=== PATIENT | male | born 1975 | race Caucasian/White ===

== ENCOUNTER 2018-02-11 17:10 | Inpatient (IN) | payer OTHER ==
[2018-02-11] MEDS ORDERED: ASPIRIN 81 MG CHEWABLE TABLETS PO ONE (17:17)
--- NOTE | 2018-02-11 17:18 | PDOC ---
Rapid Medical Evaluation Chief Complaint: Chest Pain Time Seen by Provider: 02/11/18 17:16 Medical Evaluation: 02/11/18 17:16 c/o epigastric/ left sided chest pain for 1 hour prior to arrival. patient reports feeling sweating and slight nausea. PE: patient alert ox3. A; chest pain Labs EKG chest xray Discharge Disposition - Diagnosis Chest pain Qualifiers: Chest pain type: unspecified Qualified Code(s): R07.9 - Chest pain, unspecified - Referrals - Patient Instructions - Post Discharge Activity
[2018-02-11] MEDS ORDERED: ASPIRIN 81 MG CHEWABLE TABLETS ONE (17:35)
[2018-02-11 17:56] LABS: BASO % 1.1 % (0-2.0); EOS % 1.1 % (0-4.5); HEMATOCRIT 42.1 % (35.4-49); HEMOGLOBIN 13.9 GM/dL (11.7-16.9); LYMPH % 29.8 % (8-40); MCH 28.6 pg (25.7-33.7); MCHC 32.9 g/dl (32.0-35.9); MEAN CELL VOLUME 86.8 fl (80-96); MEAN PLT VOLUME 9.2 fl (7.5-11.1); MONO % 6.3 % (3.8-10.2); NEUT % 61.7 % (42.8-82.8); PLATELET COUNT 197 K/MM3 (134-434); RBC 4.85 M/mm3 (4.00-5.60); RDW 13.1 % (11.9-15.9); WHITE BLOOD COUNT 10.1 K/mm3 (4.0-10.0)
[2018-02-11 18:06] LABS: ALBUMIN 3.8 g/dl (3.4-5.0); ALK PHOS 125 U/L (45-117); ANION GAP 10 MMOL/L (8-16); BILIRUBIN,TOTAL 0.8 mg/dL (0.2-1); BLOOD UREA NITROGEN 14 mg/dL (7-18); CALCIUM 8.9 mg/dL (8.5-10.1); CHLORIDE 106 mmol/L (98-107); CO2 25 mmol/L (21-32); CREATININE 0.8 mg/dL (0.55-1.3); GLUCOSE,RANDOM 167 mg/dL (74-106); POTASSIUM 3.9 mmol/L (3.5-5.1); SGOT/AST 163 U/L (15-37); SGPT/ALT 118 U/L (13-61); SODIUM 141 mmol/L (136-145); TOT PROT 7.6 g/dl (6.4-8.2)
[2018-02-11 18:39] LABS: INR 1.18 (0.83-1.09)
--- NOTE | 2018-02-11 18:46 | PDOC ---
Attending Attestation - HPI HPI: This patient is a 42 year old male with no significant PMHx, who presents with epigastric for 1 hour prior to arrival. Patient states that around 4 pm he felt a dull epigastric pain, felt lightheaded, began to sweat and have mild SOB. Patient reports associated nausea and diaphoresis. He denies any recent fevers, chills, or infections. Denies any back pain, diarrhea, constipation, or urinary complaints. <Carmina Gamboa - Last Filed: 02/11/18 19:58> - Physicial Exam PE: 02/13/18 10:19 Agree with resident exam. Patient is in no acute distress, not diaphoretic on my exam. Abdomen is soft, non distended, with very mild epigastric tenderness to deep palpation. - Medical Decision Making 02/13/18 10:29 Pt presents to the ED complaining of epigastric pain. Differential includes gastritis, pancreatitis, biliary disease and less likely ACS. initial EKG shows incomplete RBB but no evidence of ischemia. Will check labs including LFT , lipase and troponin. Will treat with pepcid. If troponin is negative, HEART score will be 1. Will consider discharge if second troponin is negative. <Thao Jones - Last Filed: 02/13/18 10:33>
[2018-02-11] MEDS ORDERED: ACETAMINOPHEN 1000 MG/100 ML VIAL (NON FORMULARY) IVPB ONE (18:49)
[2018-02-11] MEDS ORDERED: SODIUM CHLORIDE 0.9% 500 ML INFUS.BAG IV ONE (18:49)
[2018-02-11] MEDS ORDERED: FAMOTIDINE 20 MG/50 ML IVPB 20 MG/50 ML MG IVPB ONE ×2 (18:50→18:52)
[2018-02-11] MEDS ORDERED: KETOROLAC TROMETHAMINE 30 MG/1 ML VIAL IVPUSH ONE (19:11)
[2018-02-11] MEDS ORDERED: KETOROLAC TROMETHAMINE 30 MG/1 ML VIAL ONE (19:33)
--- NOTE | 2018-02-11 19:39 | PDOC ---
History of Present Illness - General Chief Complaint: Chest Pain Stated Complaint: CHEST PAIN Time Seen by Provider: 02/11/18 17:16 - History of Present Illness Initial Comments: 42 yo M w no sig pmh presents to the ER with epigastric pain which came about at 4 pm today while he was watching television. At 3 pm he states that he was healthy and had no complaints. Then out of nowhere at 4 pm he began having this boring, dull pain the epigastric region, felt lightheaded, started sweating, and had mild shortness of breath. By the time he got to the hospital his SOB and diaphoresis had resolved but his epigastric discomfort was still persisting. EkG done in triage showed a partial RBBB and was bradycardic to 50. By the time I went to examine the patient at bedside his heart rate had normalized to 68. He denies any recent fevers, chills, or infections. Denies any chest pain, back pain, diarrhea, constipation, or urinary complaints. PCP: Social Hx: Denies cigarette, alcohol, or illicit drug usage. Allergies: NKA, NKDA Past History - Past Medical History Allergies/Adverse Reactions: Allergies Allergy/AdvReac Type Severity Reaction Status Date / Time No Known Allergies Allergy Verified 02/11/18 17:18 Home Medications: Ambulatory Orders NK [No Known Home Medication] 02/11/18 COPD: No - Suicide/Smoking/Psychosocial Hx Smoking History: Never smoked Review of Systems - Review of Systems Comments:: CONSTITUTIONAL: Present: diaphoresis Absent: fever, chills, generalized weakness, malaise, loss of appetite HEENT: Absent: rhinorrhea, nasal congestion, throat pain, throat swelling, difficulty swallowing, mouth swelling, ear pain, eye pain, visual Changes CARDIOVASCULAR: Present: lightheadedness Absent: chest pain, syncope, palpitations, irregular heart rate, peripheral edema RESPIRATORY: Present: Shortness of breath Absent: cough, dyspnea with exertion, orthopnea, wheezing, stridor, hemoptysis GASTROINTESTINAL: Present: Abdominal pain Absent: abdominal distension, nausea, vomiting, diarrhea, constipation, melena, hematochezia GENITOURINARY: Absent: dysuria, frequency, urgency, hesitancy, hematuria, flank pain, genital pain MUSCULOSKELETAL: Absent: myalgia, arthralgia, joint swelling SKIN: Absent: rash, itching, pallor HEMATOLOGIC/IMMUNOLOGIC: Absent: easy bleeding, easy bruising, lymphadenopathy, frequent infections ENDOCRINE: Absent: unexplained weight gain, unexplained weight loss, heat intolerance, cold intolerance NEUROLOGIC: Absent: headache, focal weakness or paresthesias, dizziness, unsteady gait, seizure, mental status changes, bladder or bowel incontinence PSYCHIATRIC: Absent: anxiety, depression, suicidal or homicidal ideation, hallucinations. *Physical Exam - Vital Signs Last Vital Signs Temp Pulse Resp BP Pulse Ox 98.4 F 61 17 129/75 100 02/11/18 17:17 02/11/18 18:57 02/11/18 18:57 02/11/18 18:57 02/11/18 18:57 - Physical Exam Comments: GENERAL: Well developed, well nourished. Awake and alert. No acute distress. HEENT: Normocephalic, atraumatic. PERRLA, EOMI. No conjunctival pallor. Sclera are non- icteric. Moist mucous membranes. Oropharynx is clear. NECK: Supple. Full ROM. No JVD. No thyromegaly. No lymphadenopathy. CARDIOVASCULAR: Regular rate and rhythm. No murmurs, rubs, or gallops. Distal pulses are 2+ and symmetric. PULMONARY: No evidence of respiratory distress. Lungs clear to auscultation bilaterally. No wheezing, rales or rhonchi. ABDOMINAL: There is mild TTP in the epigastric region. Otherwise, abdomen is soft, non- tender, and non-distended. No rebound or guarding. No organomegaly. Normoactive bowel sounds. MUSCULOSKELETAL Normal range of motion at all joints. No bony deformities or tenderness. No CVA tenderness. EXTREMITIES: No cyanosis. No clubbing. No edema. No calf tenderness. SKIN: Warm and dry. Normal capillary refill. No rashes. No jaundice. NEUROLOGICAL: Alert, awake, appropriate. Cranial nerves 2-12 intact. No deficits to light touch in face, upper extremities and lower extremities. No motor deficits in the in face, upper extremities and lower extremities. Normal speech. Gait is normal without ataxia. PSYCHIATRIC: Cooperative. Good eye contact. Appropriate mood and affect. ED Treatment Course - LABORATORY CBC & Chemistry Diagram: 02/11/18 17:31 02/11/18 17:31 - ADDITIONAL ORDERS Additional order review: Laboratory Results 02/11/18 02/11/18 17:31 17:31 PT with INR 14.00 H INR 1.18 H Sodium 141 Potassium 3.9 Chloride 106 Carbon Dioxide 25 Anion Gap 10 BUN 14 Creatinine 0.8 Creat Clearance w eGFR > 60 Random Glucose 167 H Calcium 8.9 Magnesium 2.0 Total Bilirubin 0.8 AST 163 H ALT 118 H Alkaline Phosphatase 125 H Creatine Kinase 113 Troponin I < 0.02 Total Protein 7.6 Albumin 3.8 02/11/18 17:31 RBC 4.85 MCV 86.8 MCHC 32.9 RDW 13.1 MPV 9.2 Neutrophils % 61.7 Lymphocytes % 29.8 Monocytes % 6.3 Eosinophils % 1.1 Basophils % 1.1 - RADIOLOGY Radiology Studies Ordered: Category Date Time Status ABDOMEN US -LIMITED [US] Stat Ultrasound 02/11/18 18:48 Ordered - Medications Given in the ED: ED Medications Discontinued Medications Generic Name Dose Route Start Last Admin Trade Name Freq PRN Reason Stop Dose Admin Acetaminophen 1,000 mg 02/11/18 18:49 02/11/18 19:32 Ofirmev Injection - IVPB 02/11/18 18:50 Not Given ONCE ONE Aspirin 162 mg 02/11/18 17:17 02/11/18 17:41 Asa - PO 02/11/18 17:18 162 mg ONCE ONE Administration Famotidine/Sodium Chloride 20 mg in 50 mls @ 100 mls/hr 02/11/18 18:50 19:11 Pepcid 20 Mg Premixed Ivpb - IVPB 02/11/18 19:19 100 mls/hr ONCE ONE Administration Ketorolac Tromethamine 30 mg 02/11/18 19:11 02/11/18 19:35 Toradol Injection - IVPUSH 02/11/18 19:12 30 mg ONCE ONE Administration Sodium Chloride 1,000 ml 02/11/18 18:49 02/11/18 19:11 Normal Saline - IV 02/11/18 18:50 1,000 ml ONCE ONE Administration Medical Decision Making - Medical Decision Making 42 yo M w no sig pmh presents to the ER with epigastric pain, diaphoresis, bradycardia, partial RBBB, SOB. 1st trop negative, EKG not suggestive of ACS. DD includes but not limited to: ACS, vasovagal pain episode, pancreatitis, gallbladder disease, liver disease. Plan: Cbc, Cmp, lipase, ekg, trop x2, IVF-ns, RUQ us, toradol, re-assess. -1st trop noted to be negative. - 2nd trop negative as well. This is likely not cardiovascular pain. LFT's mildly elevated. US showed biliary sludge and a thickened wall. Patients father also had gallstones. We will admit for surgical eval, pain control, and for further evaluation of LFTs *DC/Admit/Observation/Transfer Diagnosis at time of Disposition: Biliary sludge determined by ultrasound, Abnormal LFTs (liver function tests) Chest pain Qualifiers: Chest pain type: unspecified Qualified Code(s): R07.9 - Chest pain, unspecified - Referrals - Patient Instructions - Post Discharge Activity
[2018-02-11] MEDS ORDERED: MAG HYDROX/AL HYDROX/SIMETH -MYLANTA- ORAL SUSPENSION PO ONE (20:11)
[2018-02-11] MEDS ORDERED: MAG HYDROX/AL HYDROX/SIMETH 30 ML UNIT-DOSE CUP ONE (20:14)
[2018-02-11] MEDS ORDERED: morphine SULFATE 4 MG/ML VIAL ONE (20:36)
[2018-02-11 20:47] LABS: LIPASE 266 U/L (73-393)
[2018-02-11] MEDS ORDERED: morphine CARPU-JECT 2 MG/1 ML DISP.SYRIN IVPUSH ONE (20:54)
--- NOTE | 2018-02-11 22:44 | PN ---
Teaching Attending Note Name of Resident: Singh Medina ATTENDING PHYSICIAN STATEMENT I saw and evaluated the patient. I reviewed the resident's note and discussed the case with the resident. I agree with the resident's findings and plan as documented. SUBJECTIVE: Patient is a 42 year old man with no significant PMH who presents to the ER with epigastric pain which started about 4 pm today while he was watching television. At 3 pm he states that he was healthy and had no complaints. Then out of nowhere at 4 pm he began having this boring, dull pain the epigastric region, felt lightheaded, started sweating, and had mild shortness of breath. By the time he got to the hospital his SOB and diaphoresis had resolved but his epigastric discomfort was still persisting. EkG done in triage showed a partial RBBB and was bradycardic to 50. Later his heart rate had normalized to 68. He denies any recent fevers, chills, diarrhea or urinary complaints. OBJECTIVE: Alert Vital Signs Period Temp Pulse Resp BP Sys/[place] Pulse Ox Last 24 Hr 98.4 F 50-63 17-20 125-129/50-75 99-100 HEENT: No Jaundice, eye redness or discharge, PERRLA, EOMI. Normocephalic, atraumatic. External ears are normal and hearing is grossly intact. No nasal discharge. Neck: Supple, nontender. No palpable adenopathy or thyromegaly. No JVD Chest: Good effort. Clear to auscultation and percussion. Heart: Regular. No S3, rub or murmur Abdomen: Not distended, soft, tender epigastrium and no HSM. No rebound or guarding. Normoactive bowel sounds. Ext: Peripheral pulses intact. No leg edema. Skin: Warm and dry. No petechiae, rash or ecchymosis. Neuro: Alert. Oriented x3. CN 2-12 grossly intact. Sensation grossly intact in all four extremities and DTR are symmetric. Home Medications Medication Instructions Recorded NK [No Known Home Medication] 02/11/18 Abnormal Lab Results 02/11/18 02/11/18 02/11/18 17:31 17:31 17:31 WBC 10.1 H PT with INR 14.00 H INR 1.18 H Random Glucose 167 H AST 163 H ALT 118 H Alkaline Phosphatase 125 H ASSESSMENT AND PLAN: 1. Epigastric pain - Sonogram findings suggestive of cholecystitis. Will treat with IV Levaquin, Flagyl and IV NS. Consult surgery, GI and get hepatitis serology. Get HbA1c. 2. DVT prophylaxis - Lovenox 40 mg SQ q 24 hours. 3. Advance directives - Full code
--- NOTE | 2018-02-12 00:32 | HP ---
CHIEF COMPLAINT: Abdominal pain PCP: HISTORY OF PRESENT ILLNESS: Patient is a 42 year old male with no significant past medical or surgical history presenting with sudden onset abdominal pain. Began approx. 4pm this afternoon as patient was sitting down. Pain is described as sharp, with pressure over the epigastrium. Pain is constant, and non radiating. Was associated with diaphoresis, lightheadedness. Upon my encounter, patient states the pain has fully resolved. He has received morphine, aspirin, mylanta, ofirmev , pepcid, and ketorolac in the ED. Denies fevers, chills, shortness of breath, chest pain, palpitations, nausea, vomiting, diarrhea, constipation. ER course was notable for: (1) Inspissated bile/ sludge within the gallbladder lumen on ultrasound (2) troponins engative 0.02 X2 (3) morphine, aspirin, mylanta, ofirmev, pepcid, ketorolac Recent Travel: PAST MEDICAL HISTORY: denies PAST SURGICAL HISTORY: denies Social History: Smoking: denies Alcohol: denies Drugs: denies Family History: Allergies No Known Allergies Allergy (Verified 02/11/18 17:18) HOME MEDICATIONS: Home Medications Medication Instructions Recorded NK [No Known Home Medication] 02/11/18 REVIEW OF SYSTEMS CONSTITUTIONAL: Absent: fever, chills, diaphoresis, generalized weakness, HEENT: Absent: rhinorrhea, nasal congestion, throat pain, throat swelling, difficulty swallowing, CARDIOVASCULAR: Absent: chest pain, syncope, palpitations, irregular heart rate, peripheral edema, lightheadedness (resolved) RESPIRATORY: Absent: cough, shortness of breath, dyspnea with exertion, orthopnea, wheezing, GASTROINTESTINAL: Admits: abdominal pain (resolved). Denies: abdominal distension, nausea, vomiting, diarrhea, constipation, melena, hematochezia GENITOURINARY: Absent: dysuria, frequency, urgency, hesitancy, hematuria, NEUROLOGIC: Absent: headache, focal weakness or paresthesias, dizziness, unsteady gait, bladder or bowel incontinence PHYSICAL EXAMINATION Vital Signs - 24 hr 02/11/18 02/11/18 02/11/18 17:17 18:57 20:49 Temperature 98.4 F Pulse Rate 50 L Pulse Rate [ 61 63 Apical] Respiratory 20 17 17 Rate Blood Pressure 125/50 L Blood Pressure 129/75 128/68 [Left Arm] O2 Sat by Pulse 100 100 99 Oximetry (%) GENERAL: Patient is awake, alert, and fully oriented, in no acute distress. Appears stated age. HEAD: Normal with no signs of trauma. EYES: Pupils equal, round and reactive to light, extraocular movements intact b/ l. Sclera anicteric, conjunctiva non-injected b/l. EARS, NOSE, THROAT: Oropharynx clear without exudates erythema, or lesion. Moist mucous membranes. NECK: Normal range of motion, supple without lymphadenopathy, JVD, or masses. LUNGS: Breath sounds equal, clear to auscultation bilaterally. No wheezes, no rhonchi. No accessory muscle use. HEART: Regular rate and rhythm, normal S1 and S2 without murmur, rub or gallop. ABDOMEN: Soft, nontender to light and deep palpation, not distended. Normoactive bowel sounds X4 quadrants, no guarding, no rebound tendernes. No hepatomegaly appreciated. Negative Bethea's sign. MUSCULOSKELETAL: Normal range of motion at all joints. Strength 5/5 b/l upper and lower extremities. UPPER EXTREMITIES: 2+ radial pulses b/l, warm, well-perfused. LOWER EXTREMITIES: 2+ dorsalis pedis pulses b/l, warm, well-perfused. No calf tenderness b/l. No lower extremity edema. NEUROLOGICAL: Cranial nerves II-XII intact. Normal speech. Normal gait. PSYCHIATRIC: Cooperative. Good eye contact. Appropriate mood and affect. SKIN: Warm, dry, normal turgor, no rashes or lesions noted, normal capillary refill. Laboratory Results - last 24 hr 02/11/18 02/11/18 02/11/18 17:31 17:31 17:31 WBC 10.1 H RBC 4.85 Hgb 13.9 Hct 42.1 MCV 86.8 MCH 28.6 MCHC 32.9 RDW 13.1 Plt Count 197 MPV 9.2 Absolute Neuts (auto) 6.2 Neutrophils % 61.7 Lymphocytes % 29.8 Monocytes % 6.3 Eosinophils % 1.1 Basophils % 1.1 Nucleated RBC % 0 PT with INR 14.00 H INR 1.18 H Sodium 141 Potassium 3.9 Chloride 106 Carbon Dioxide 25 Anion Gap 10 BUN 14 Creatinine 0.8 Creat Clearance w eGFR > 60 Random Glucose 167 H Calcium 8.9 Magnesium 2.0 Total Bilirubin 0.8 AST 163 H ALT 118 H Alkaline Phosphatase 125 H Creatine Kinase 113 Troponin I < 0.02 Total Protein 7.6 Albumin 3.8 Lipase 266 ASSESSMENT/PLAN: Patient is a 42 year old male with no significant past medical or surgical history presenting with sudden onset abdominal pain. Cholecystitis -Ultrasound of gallbladder shows inspissated bile/ sludge within the gallbladder lumen. No calculus noted. Mild distension of the gallbladder. -Levofloxacin 5000mg IV daily -Flagyl 500mg IV Q8H -Pain control with Morphine 2mg IV push Q6H PRN -F/U surgical consult (Dr. Negron) -F/U GI consult (Dr. Murray) -NPO -IV normal saline at 75mL/ hour Elevated blood glucose -Patient denies history of diabetes -F/U HbA1c -ISS -BGM FEN -IV normal saline at 75mL/ hour -Will follow CMP -NPO for now Prophylaxis -Lovenox 40mg subq daily Disposition -Admit to medical-surgical floor Visit type - Emergency Visit Emergency Visit: Yes ED Registration Date: 02/11/18 Care time: The patient presented to the Emergency Department on the above date and was hospitalized for further evaluation of their emergent condition. - New Patient This patient is new to me today: Yes Date on this admission: 02/12/18 - Critical Care Critical Care patient: No
[2018-02-12] MEDS: SODIUM CHLORIDE 1,000 ML IV SCH ×2 (01:39→17:22)
[2018-02-12 02:50] VITALS: BMI 27.8
[2018-02-12] MEDS: INSULIN SLIDING SCALE (NOVOLOG) 1 VIAL SQ SCH ×4 (06:50→21:41)
[2018-02-12 07:30] LABS: HEMATOCRIT 40.4 % (35.4-49); HEMOGLOBIN 13.6 GM/dL (11.7-16.9); MCH 29.1 pg (25.7-33.7); MCHC 33.6 g/dl (32.0-35.9); MEAN CELL VOLUME 86.5 fl (80-96); MEAN PLT VOLUME 9.3 fl (7.5-11.1); PLATELET COUNT 171 K/MM3 (134-434); RBC 4.67 M/mm3 (4.00-5.60); RDW 12.9 % (11.9-15.9); WHITE BLOOD COUNT 6.4 K/mm3 (4.0-10.0)
[2018-02-12 07:57] LABS: INR 1.28 (0.83-1.09); PROTHROMBIN TIME (PATIENT) 15.1 SEC (9.7-13.0)
[2018-02-12 08:00] LABS: ACTIVATED PTT 29.4 SECONDS (25.2-36.5)
[2018-02-12 08:50] LABS: ALBUMIN 3.4 g/dl (3.4-5.0); ALK PHOS 153 U/L (45-117); ANION GAP 7 MMOL/L (8-16); BILIRUBIN,TOTAL 3.6 mg/dL (0.2-1); BLOOD UREA NITROGEN 9 mg/dL (7-18); CALCIUM 8.4 mg/dL (8.5-10.1); CHLORIDE 108 mmol/L (98-107); CO2 26 mmol/L (21-32); CREATININE 0.6 mg/dL (0.55-1.3); GLUCOSE,RANDOM 94 mg/dL (74-106); MAGNESIUM 2.1 mg/dL (1.8-2.4); PHOSPHOROUS 2.7 mg/dL (2.5-4.9); POTASSIUM 3.6 mmol/L (3.5-5.1); SGOT/AST 306 U/L (15-37); SGPT/ALT 338 U/L (13-61); SODIUM 140 mmol/L (136-145); TOT PROT 6.8 g/dl (6.4-8.2)
[2018-02-12] MEDS ORDERED: ENOXAPARIN NA (PORCINE) 40 MG/0.4 ML DISP.SYRIN SQ SCH (10:00)
--- NOTE | 2018-02-12 10:25 | EKG ---
Test Reason : Blood Pressure : / mmHG Vent. Rate : 054 BPM Atrial Rate : 054 BPM P-R Int : 148 ms QRS Dur : 116 ms QT Int : 442 ms P-R-T Axes : 051 016 051 degrees QTc Int : 419 ms SINUS BRADYCARDIA WITH MARKED SINUS ARRHYTHMIA INCOMPLETE RIGHT BUNDLE BRANCH BLOCK NO PREVIOUS ECGS AVAILABLE Confirmed by FREYA VICKERS MD ([id number]) on 02/12/2018 10:24:54 AM Referred By: Confirmed By:FREYA VICKERS MD
--- NOTE | 2018-02-12 14:53 | PN ---
Progress Note (short form) - Note Progress Note: patient symptoms improved since the 1st episode, will await the MRI to evaluate the patient Cholecystitis -Ultrasound of gallbladder shows inspissated bile/ sludge within the gallbladder lumen. No calculus noted. Mild distension of the gallbladder. -Levofloxacin 500mg IV daily -metronidazole 500mg IV Q8H -Pain control with Morphine 2mg IV push Q6H PRN -F/U surgical consult (Dr. Negron) -F/U GI consult (Dr. Murray) -NPO -IV normal saline at 75mL/ hour Elevated blood glucose -Patient denies history of diabetes -F/U HbA1c -ISS -BGM FEN -IV normal saline at 75mL/ hour -Will follow CMP -NPO for now Prophylaxis -enoxaparin 40mg subq daily Disposition -Admit to medical-surgical floo
--- NOTE | 2018-02-12 16:24 | CONS ---
DATE OF CONSULTATION: DATE OF DICTATION: 02/12/2018 HISTORY OF PRESENT ILLNESS: The patient is a 42-year-old male with no significant past medical history who developed abdominal pain which began last night. He states the pain is in the epigastric area. It did not radiate. He also had associated chills, fever and sweating. He does not admit to any nausea, vomiting, change in his bowel habit, melena, hematochezia or previous similar episodes in the past. He does not take NSAIDs at home. He has never had an endoscopic evaluation. He states his pain has resolved at this time. PAST MEDICAL AND SURGICAL HISTORY: As listed in the HPI. ALLERGIES: No known drug allergies, SOCIAL HISTORY: He does not smoke, drink or use drugs. FAMILY HISTORY: Noncontributory. HOME MEDICATIONS: Denies taking any home medications. REVIEW OF SYSTEMS: Negative except for pertinent positives listed in the HPI. PHYSICAL EXAMINATION: Vital signs: Temperature 98, pulse 78, respiratory rate 12, blood pressure 126/ 74, pulse oximetry 100% on room air. General: In no acute distress. HEENT: Anicteric sclerae. Cardiovascular: S1, S2. Regular rate and rhythm. Lungs: Bilaterally clear to auscultation. Abdomen: Soft and nontender. Extremities: No edema. LABS: White blood cell count on admission was 10; currently 6.4. Hemoglobin 13.6, hematocrit 40. MCV 86. Platelet count 171. INR 1.2, PT 15, sodium 140, potassium 3.6, BUN 9, creatinine 0.6, calcium 8.4, total bilirubin 3.6. AST 306, ALT 338, alkaline phosphatase 153. Troponins are negative. Previous liver tests revealed an AST of 163, an ALT of 118 and alkaline phosphatase of 125. IMPRESSION: Epigastric abdominal pain. Ultrasound findings are consistent with bile and sludge in the gallbladder. These findings are most suspicious for a biliary etiology to his pain/ acute cholecystitis RECOMMENDATION: Patient to be n.p.o. IV fluids. He can have some ice chips. Would empirically treat him with Levaquin and Flagyl therapy for presumed acute cholecystitis. An MRCP has already been ordered and we will follow up the results. Trend LFT - repeat in the morning. Recommend surgery evaluation. Will follow this patient with you. DO EVERETT RITTERAnai/[id number] MTDD
[2018-02-12] MEDS ORDERED: INSULIN (NOVOLOG) ASPART 100 UNITS/ML 10ML VIAL ONE (21:10)
--- NOTE | 2018-02-12 21:44 | CONSULT ---
Consult Consult Specialty:: General Surgery Referred by:: Dr. Medina Reason for Consultation:: cholecystitis - History of Present Illness Chief Complaint: epigastric pain History of Present Illness: 42yo M with no sig PMH/PSH except environmental allergies he gets shots for, presented with epigastric pain for about a day, associated with some chills and sweating, but no N/V, no change in bowel habits, no radiation and no other symptoms. In the ER yesterday, he had wbc 10.1, mildly elevated LFTs with bili 0.8, was afebrile, and had US showing inspissated sludge in distended gallbladder with no ductal dilation or fluid. He was admitted to medicine, started on antibiotics and IVF for possible acute cholecystitis, and this morning, his bilirubin jumped to 3.6, with further elevation of AST/ALT as well. Lipase was normal. Surgery was asked to evaluate, and MRCP was done tonight. He is seen and examined in bed, with family at bedside. He reports feeling better, with no current pain, but he is hungry. His urine has been dark brown, almost reddish today, and his thinks he may look a tiny bit yellowish in his skin. Last BM was yesterday, normal. The pain was epigastric without radiation, but is gone now. His father is also present, who had his gallbladder removed laparoscopically several years ago. - History Source History Provided By: Patient Limitations to Obtaining History: No Limitations - Past Medical History ENT: Yes: Allergic Rhinitis - Past Surgical History Past Surgical History: Yes: None - Alcohol/Substance Use Hx Alcohol Use: Yes (social/occasional) History of Substance Use: reports: None - Smoking History Smoking history: Never smoked Have you smoked in the past 12 months: No - Social History Usual Living Arrangement: With Spouse ADL: Independent Occupation: manufacturing company Home Medications - Allergies Allergies/Adverse Reactions: Allergies Allergy/AdvReac Type Severity Reaction Status Date / Time No Known Allergies Allergy Verified 02/11/18 17:18 - Home Medications Home Medications: Ambulatory Orders NK [No Known Home Medication] 02/11/18 Family Disease History - Family Disease History Family Disease History: Other: Father (had gallbladder out) Review of Systems - Review of Systems Constitutional: reports: Chills, Diaphoresis. denies: Fever, Loss of Appetite Eyes: reports: Other (uses glasses for driving). denies: Recent Change in Vision HENT: denies: Difficult Swallowing, Throat Pain Neck: denies: Swollen Glands, Tenderness Cardiovascular: denies: Chest Pain, Palpitations Respiratory: denies: Cough, SOB Gastrointestinal: reports: Abdominal Pain (with hpi). denies: Constipation, Diarrhea, Nausea, Vomiting Genitourinary: denies: Burning, Dysuria Musculoskeletal: denies: Back Pain, Joint Pain, Muscle Pain Integumentary: denies: Change in Color, Rash Neurological: denies: Dizziness, Headache Psychiatric: denies: Anxiety, Depression Physical Exam Vital Signs: Vital Signs Temperature 98.6 F 02/12/18 18:00 Pulse Rate 73 02/12/18 18:00 Respiratory Rate 18 02/12/18 15:00 Blood Pressure 133/69 02/12/18 18:00 O2 Sat by Pulse Oximetry (%) 100 02/12/18 17:00 Constitutional: Yes: Well Nourished, No Distress, Calm Eyes: Yes: Conjunctiva Clear, EOM Intact. No: Sclera Icterus (faint, if any) HENT: Yes: Atraumatic, Normocephalic Neck: Yes: Supple, Trachea Midline Cardiovascular: Yes: Regular Rate and Rhythm, Murmur (blowing holosystolic murmur at left sternal border) Respiratory: Yes: Regular, CTA Bilaterally Gastrointestinal: Yes: Normal Bowel Sounds, Soft. No: Distention, Tenderness, Tenderness, Epigastrium ...Rectal Exam: Yes: Deferred Renal/: No: CVA Tenderness - Left, CVA Tenderness - Right Musculoskeletal: No: Joint Stiffness, Joint Swelling Extremities: No: Cool, Cyanosis Edema: No Peripheral Pulses WNL: Yes Integumentary: No: Jaundice (none appreciable), Rash Neurological: Yes: Alert, Oriented Psychiatric: Yes: Alert, Oriented Labs: CBC, BMP 02/12/18 06:15 02/12/18 06:15 CMP Sodium 140 mmol/L (136-145) 02/12/18 06:15 Potassium 3.6 mmol/L (3.5-5.1) 02/12/18 06:15 Chloride 108 mmol/L (98-107) H 02/12/18 06:15 Carbon Dioxide 26 mmol/L (21-32) 02/12/18 06:15 Anion Gap 7 MMOL/L (8-16) L 02/12/18 06:15 BUN 9 mg/dL (7-18) 02/12/18 06:15 Creatinine 0.6 mg/dL (0.55-1.3) 02/12/18 06:15 Creat Clearance w eGFR > 60 (>60) 02/12/18 06:15 POC Glucometer 98 UNITS (80-120) 02/12/18 16:25 Random Glucose 94 mg/dL (74-106) 02/12/18 06:15 Hemoglobin A1c % 5.6 % (4.2-6.3) 02/12/18 06:15 Calcium 8.4 mg/dL (8.5-10.1) L 02/12/18 06:15 Phosphorus 2.7 mg/dL (2.5-4.9) 02/12/18 06:15 Magnesium 2.1 mg/dL (1.8-2.4) 02/12/18 06:15 Total Bilirubin 3.6 mg/dL (0.2-1) H 02/12/18 06:15 AST 306 U/L (15-37) H 02/12/18 06:15 ALT 338 U/L (13-61) H 02/12/18 06:15 Alkaline Phosphatase 153 U/L (45-117) H 02/12/18 06:15 Creatine Kinase 113 IU/L (26-308) 02/11/18 17:31 Troponin I < 0.02 ng/ml (0.00-0.05) 02/11/18 22:00 Total Protein 6.8 g/dl (6.4-8.2) 02/12/18 06:15 Albumin 3.4 g/dl (3.4-5.0) 02/12/18 06:15 Lipase 266 U/L (73-393) 02/11/18 17:31 wbc down from 10.1 bili up from 0.8, AST/ALT up from 100s, alk phos still up lipase normal INR, PTT INR 1.28 (0.83-1.09) H 02/12/18 06:15 Imaging - Results Ultrasound: Report Reviewed, Image Reviewed (images personally reviewed - sludge in gallbladder with no clear stones, distended gb, no pericholecystic fluid, no ductal dilation) MRI: Report Reviewed, Image Reviewed (images reviewed with Dr. Peck by phone - no clear intraductal stones, + sludge in gb, mildly thickened wall of distended gallbladder, no surrounding fluid, no ductal dilation) Problem List - Problems (1) Calculus of gallbladder with acute cholecystitis without obstruction Assessment/Plan: sand/sludge in gallbladder with probable element of acute cholecystitis, clinically improved possibly passing sludge/small stones, given rise in LFTs this morning but no clear ductal obstruction on MRCP tonight currently without pain or tenderness NPO/IVF trend labs GI/DVT prophylaxis GI consult noted if LFTs back down in am, would allow clears tomorrow and NPO after midnight presuming pt willing to have lap ricky Wednesday if LFTs up in am, would have GI followup for possible ERCP despite MRI findings Discussed with patient and family risks, benefits and alternatives of laparoscopic possible open cholecystectomy, including but not limited to bleeding, infection, injury to adjacent structures, bile leak or ductal injury, intraabdominal abscess, incisional hernia, need for further procedures; alternatives include antibiotics, delayed or no surgery - risks of this include recurrence of biliary colic, cholecystitis, cholangitis, pancreatitis. Patient will consider surgery and discuss with family Pending above in am, will follow up for further discussion and recommendations Code(s): K80.00 - CALCULUS OF GALLBLADDER W ACUTE CHOLECYST W/O OBSTRUCTION (2) Sludge in gallbladder Code(s): K82.8 - OTHER SPECIFIED DISEASES OF GALLBLADDER (3) Hyperbilirubinemia Code(s): E80.6 - OTHER DISORDERS OF BILIRUBIN METABOLISM (4) Epigastric abdominal pain Code(s): R10.13 - EPIGASTRIC PAIN
[2018-02-12] MEDS ORDERED: SODIUM CHLORIDE 1,000 ML IV SCH (22:03)
[2018-02-13] MEDS: INSULIN SLIDING SCALE (NOVOLOG) 1 VIAL SQ SCH ×4 (06:15→22:53)
--- NOTE | 2018-02-13 07:32 | PN ---
Progress Note, Physician Chief Complaint: Pt states he is feeling better - denies any GI complaints - Current Medication List Current Medications: Active Medications Enoxaparin Sodium (Lovenox -) 40 mg SQ DAILY [facility] Metronidazole (Flagyl 500mg Premixed Ivpb -) 500 mg in 100 mls @ 100 mls/hr IVPB TID [facility] Last Admin: 02/13/18 06:11 Dose: 100 mls/hr Levofloxacin (Levaquin 500 Mg Premixed Ivpb -) 500 mg in 100 mls @ 100 mls/hr IVPB DAILY [facility]; Protocol Last Admin: 02/12/18 05:30 Dose: 100 mls/hr Sodium Chloride (Normal Saline -) 1,000 mls @ 125 mls/hr IV ASDIR [facility] Last Admin: 02/13/18 06:11 Dose: 125 mls/hr Insulin Aspart (Novolog Vial Sliding Scale -) 1 vial SQ ACHS [facility]; Protocol Last Admin: 02/13/18 06:15 Dose: Not Given - Objective Vital Signs: Vital Signs Temperature 98.2 F 02/13/18 05:46 Pulse Rate 85 02/13/18 05:46 Respiratory Rate 18 02/13/18 05:46 Blood Pressure 127/78 02/13/18 05:46 O2 Sat by Pulse Oximetry (%) 100 02/12/18 21:00 Constitutional: Yes: Well Nourished Eyes: Yes: Sclera Icterus HENT: Yes: WNL Neck: Yes: WNL Cardiovascular: Yes: WNL Respiratory: Yes: WNL Gastrointestinal: Yes: WNL, Normal Bowel Sounds, Soft Musculoskeletal: Yes: WNL Extremities: Yes: WNL Edema: No Labs: CBC, BMP 02/12/18 06:15 02/12/18 06:15 INR, PTT INR 1.28 (0.83-1.09) H 02/12/18 06:15 Problem List - Problems (1) Abnormal LFTs (liver function tests) Code(s): R94.5 - ABNORMAL RESULTS OF LIVER FUNCTION STUDIES (2) Calculus of gallbladder with acute cholecystitis without obstruction Code(s): K80.00 - CALCULUS OF GALLBLADDER W ACUTE CHOLECYST W/O OBSTRUCTION (3) Hyperbilirubinemia Code(s): E80.6 - OTHER DISORDERS OF BILIRUBIN METABOLISM Assessment/Plan - MRCP reviewed - acute cholecystitis - Bilirubin rising however AST and ALT are down trending , he may have passed a stone. Hepatitis serology are pending - clear liquid diet - trend LFT while hospitalized - c/w abx - Surgery is planning for cholecystectomy ; I will speak with Dr. Holland regarding timing of the ERCP. Tentatively , Patient should be NPO midnight. Plan of care was discussed with the patient at the bedside.
[2018-02-13 08:05] LABS: LIPASE 183 U/L (73-393)
[2018-02-13 09:35] LABS: BASO % 0.7 % (0-2.0); EOS % 1.5 % (0-4.5); HEMATOCRIT 40.3 % (35.4-49); HEMOGLOBIN 13.6 GM/dL (11.7-16.9); LYMPH % 13.9 % (8-40); MCH 29.6 pg (25.7-33.7); MCHC 33.7 g/dl (32.0-35.9); MEAN CELL VOLUME 87.9 fl (80-96); MEAN PLT VOLUME 10.2 fl (7.5-11.1); MONO % 8.3 % (3.8-10.2); NEUT % 75.6 % (42.8-82.8); PLATELET COUNT 167 K/MM3 (134-434); RBC 4.58 M/mm3 (4.00-5.60); RDW 13.4 % (11.9-15.9); WHITE BLOOD COUNT 5.7 K/mm3 (4.0-10.0)
--- NOTE | 2018-02-13 09:52 | PN ---
Progress Note (short form) - Note Progress Note: patient symptoms improved since the 1st episode, will await the MRI to evaluate the patient Cholecystitis -Ultrasound of gallbladder shows inspissated bile/ sludge within the gallbladder lumen. No calculus noted. Mild distension of the gallbladder. -Levofloxacin 500mg IV daily -metronidazole 500mg IV Q8H -Pain control with Morphine 2mg IV push Q6H PRN -NPO -IV normal saline at 75mL/ hour Elevated blood glucose -Patient denies history of diabetes -F/U HbA1c -ISS -BGM FEN -IV normal saline at 75mL/ hour -Will follow CMP -NPO for now Prophylaxis -enoxaparin 40mg subq daily Disposition -Admit to medical-surgical floo
[2018-02-13 10:24] LABS: ALBUMIN 3.2 g/dl (3.4-5.0); ANION GAP 3 MMOL/L (8-16); BLOOD UREA NITROGEN 10 mg/dL (7-18); CALCIUM 8.4 mg/dL (8.5-10.1); CHLORIDE 111 mmol/L (98-107); CO2 26 mmol/L (21-32); CREATININE 0.6 mg/dL (0.55-1.3); GLUCOSE,RANDOM 87 mg/dL (74-106); MAGNESIUM 1.9 mg/dL (1.8-2.4); POTASSIUM 3.5 mmol/L (3.5-5.1); SODIUM 140 mmol/L (136-145); TOT PROT 6.4 g/dl (6.4-8.2)
[2018-02-13 10:25] LABS: ALK PHOS 175 U/L (45-117); BILIRUBIN,TOTAL 8.3 mg/dL (0.2-1); SGOT/AST 106 U/L (15-37); SGPT/ALT 251 U/L (13-61)
[2018-02-13 10:46] LABS: INR 1.31 (0.83-1.09); PROTHROMBIN TIME (PATIENT) 15.5 SEC (9.7-13.0)
[2018-02-13 10:48] LABS: ACTIVATED PTT 32.3 SECONDS (25.2-36.5)
[2018-02-13 11:42] LABS: BILIRUBIN,DIRECT 5.7 mg/dL (0.0-0.2)
--- NOTE | 2018-02-13 15:50 | PN ---
Progress Note, Physician History of Present Illness: Pt with acute cholecystitis with sludge in gallbladder but no clear stones by US or other imaging. MRCP yesterday with no ductal dilation, no intraductal stones, sludge and thickened gallbladder wall. Bili up to 8.3 today (!) with direct of 5.7, AST/ALT down a bit, Alk phos up slightly. WBC normal, no fevers. Pt seen in room in bed with family at bedside - no pain, getting hungry. Having some ice chips. Had shower today. Ambulating, voiding, had BM. On antibiotics and IV fluids. - Current Medication List Current Medications: Active Medications Enoxaparin Sodium (Lovenox -) 40 mg SQ DAILY [facility] Last Admin: 02/13/18 10:27 Dose: 40 mg Metronidazole (Flagyl 500mg Premixed Ivpb -) 500 mg in 100 mls @ 100 mls/hr IVPB TID [facility] Last Admin: 02/13/18 14:19 Dose: 100 mls/hr Levofloxacin (Levaquin 500 Mg Premixed Ivpb -) 500 mg in 100 mls @ 100 mls/hr IVPB DAILY [facility]; Protocol Last Admin: 02/13/18 10:27 Dose: 100 mls/hr Potassium Chloride/Dextrose/Sod Cl (D5-1/2ns+20 Meq Kcl -) 20 meq in 1,000 mls @ 100 mls/hr IV ASDIR [facility] Insulin Aspart (Novolog Vial Sliding Scale -) 1 vial SQ ACHS [facility]; Protocol Last Admin: 02/13/18 12:00 Dose: Not Given - Objective Vital Signs: Vital Signs Temperature 97.5 F L 02/13/18 14:50 Pulse Rate 76 02/13/18 14:50 Respiratory Rate 18 02/13/18 14:50 Blood Pressure 128/77 02/13/18 14:50 O2 Sat by Pulse Oximetry (%) 100 02/13/18 09:00 Constitutional: Yes: Well Nourished, No Distress, Calm Eyes: Yes: Conjunctiva Clear, EOM Intact, Sclera Icterus (mild) HENT: Yes: Atraumatic, Normocephalic Cardiovascular: Yes: Regular Rate and Rhythm, Murmur (blowing holosystolic) Gastrointestinal: Yes: Soft. No: Distention, Tenderness, Tenderness, Epigastrium Extremities: No: Cool, Cyanosis Integumentary: Yes: Jaundice (faint? difficult to tell skin tone). No: Erythema , Rash Neurological: Yes: Alert, Oriented Labs: CBC, BMP 02/13/18 06:00 02/13/18 06:10 INR, PTT INR 1.31 (0.83-1.09) H 02/13/18 10:08 CMP Sodium 140 mmol/L (136-145) 02/13/18 06:10 Potassium 3.5 mmol/L (3.5-5.1) 02/13/18 06:10 Chloride 111 mmol/L (98-107) H 02/13/18 06:10 Carbon Dioxide 26 mmol/L (21-32) 02/13/18 06:10 Anion Gap 3 MMOL/L (8-16) L 02/13/18 06:10 BUN 10 mg/dL (7-18) 02/13/18 06:10 Creatinine 0.6 mg/dL (0.55-1.3) 02/13/18 06:10 Creat Clearance w eGFR > 60 (>60) 02/13/18 06:10 POC Glucometer 94 UNITS (80-120) 02/12/18 21:40 Random Glucose 87 mg/dL (74-106) 02/13/18 06:10 Hemoglobin A1c % 5.6 % (4.2-6.3) 02/12/18 06:15 Calcium 8.4 mg/dL (8.5-10.1) L 02/13/18 06:10 Phosphorus 2.0 mg/dL (2.5-4.9) L 02/13/18 06:10 Magnesium 1.9 mg/dL (1.8-2.4) 02/13/18 06:10 Ferritin 101.3 ng/ml (8-388) 02/13/18 06:10 Total Bilirubin 8.3 mg/dL (0.2-1) H 02/13/18 06:10 Direct Bilirubin 5.7 mg/dL (0.0-0.2) H 02/13/18 06:10 AST 106 U/L (15-37) H 02/13/18 06:10 ALT 251 U/L (13-61) H 02/13/18 06:10 Alkaline Phosphatase 175 U/L (45-117) H 02/13/18 06:10 Creatine Kinase 113 IU/L (26-308) 02/11/18 17:31 Troponin I < 0.02 ng/ml (0.00-0.05) 02/11/18 22:00 Total Protein 6.4 g/dl (6.4-8.2) 02/13/18 06:10 Albumin 3.2 g/dl (3.4-5.0) L 02/13/18 06:10 Lipase 183 U/L (73-393) 02/13/18 06:10 A1C normal hepatitis studies pending lipase normal and decreased LFTs as in HPI - bili greatly increased K little low INR, PTT INR 1.31 (0.83-1.09) H 02/13/18 10:08 INR up a little Problem List - Problems (1) Calculus of gallbladder with acute cholecystitis without obstruction Assessment/Plan: sand/sludge in gallbladder with acute cholecystitis by imaging but no clear stones clinically improved but with markedly elevated bilirubin and somewhat elevated LFTs no pain or tenderness continue NPO/IVF with ice chips for now, NPO after midnight trend labs GI/DVT prophylaxis GI following - likely for ERCP, hopefully tomorrow Discussed with Dr. Murray and Dr. Funez Primary team will also get echo in am to evaluate heart murmur Explained to patient and family that these steps are necessary before surgery should be undertaken He expressed understanding and agreement with plan Code(s): K80.00 - CALCULUS OF GALLBLADDER W ACUTE CHOLECYST W/O OBSTRUCTION (2) Sludge in gallbladder Code(s): K82.8 - OTHER SPECIFIED DISEASES OF GALLBLADDER (3) Hyperbilirubinemia Assessment/Plan: more increased today, mostly direct Code(s): E80.6 - OTHER DISORDERS OF BILIRUBIN METABOLISM (4) Epigastric abdominal pain Assessment/Plan: resolved Code(s): R10.13 - EPIGASTRIC PAIN (5) Holosystolic murmur Assessment/Plan: echo tomorrow Code(s): R01.1 - CARDIAC MURMUR, UNSPECIFIED
[2018-02-13] MEDS: D5-1/2NS+20 MEQ KCL - 20 MEQ/1,000 ML INFUS.BAG IV SCH (17:48)
[2018-02-14] MEDS: D5-1/2NS+20 MEQ KCL - 20 MEQ/1,000 ML INFUS.BAG IV SCH (03:35)
[2018-02-14] MEDS: INSULIN SLIDING SCALE (NOVOLOG) 1 VIAL SQ SCH ×4 (06:06→22:07)
[2018-02-14 06:39] LABS: BASO % 0.9 % (0-2.0); EOS % 2.1 % (0-4.5); HEMATOCRIT 39.6 % (35.4-49); HEMOGLOBIN 13.2 GM/dL (11.7-16.9); LYMPH % 34.9 % (8-40); MCH 28.9 pg (25.7-33.7); MCHC 33.2 g/dl (32.0-35.9); MEAN CELL VOLUME 86.9 fl (80-96); MEAN PLT VOLUME 9.3 fl (7.5-11.1); MONO % 9.3 % (3.8-10.2); NEUT % 52.8 % (42.8-82.8); PLATELET COUNT 161 K/MM3 (134-434); RBC 4.56 M/mm3 (4.00-5.60); RDW 13.1 % (11.9-15.9); WHITE BLOOD COUNT 4.3 K/mm3 (4.0-10.0)
[2018-02-14 08:19] LABS: ALBUMIN 3.2 g/dl (3.4-5.0); ALK PHOS 166 U/L (45-117); ANION GAP 7 MMOL/L (8-16); BILIRUBIN,TOTAL 1.8 mg/dL (0.2-1); BLOOD UREA NITROGEN 8 mg/dL (7-18); CALCIUM 8.4 mg/dL (8.5-10.1); CHLORIDE 105 mmol/L (98-107); CO2 28 mmol/L (21-32); CREATININE 0.6 mg/dL (0.55-1.3); GLUCOSE,RANDOM 100 mg/dL (74-106); MAGNESIUM 1.9 mg/dL (1.8-2.4); PHOSPHOROUS 2.8 mg/dL (2.5-4.9); POTASSIUM 3.1 mmol/L (3.5-5.1); SGOT/AST 51 U/L (15-37); SGPT/ALT 185 U/L (13-61); SODIUM 140 mmol/L (136-145); TOT PROT 6.7 g/dl (6.4-8.2)
[2018-02-14 08:50] LABS: INR 1.27 (0.83-1.09)
[2018-02-14] MEDS ORDERED: PHYTONADIONE 10 MG/1 ML AMP IVPB ONE (09:30)
--- NOTE | 2018-02-14 09:56 | ECHO ---
Name: PORSCHE DEAL Exam:Adult Echocardiogram Study Date: 02/14/2018 08:31 AM Age: 42 yrs [facility] Height: 68 in Weight: 183 lb BSA: 2.0 m2 MMode/2D Measurements & Calculations IVSd: 0.69 cm Ao root diam: 3.0 cm LVIDd: 5.6 cm LA dimension: 3.4 cm LVIDs: 3.5 cm LVPWd: 0.74 cm EDV(Teich): 152.5 ml LVOT diam: 2.3 cm ESV(Teich): 50.0 ml TAPSE: 2.5 cm RV S Ab: 15.2 cm/sec Doppler Measurements & Calculations MV E max ab: 87.8 cm/sec TR max ab: 218.5 cm/sec MV A max ab: 82.9 cm/sec TR max P.1 mmHg MV E/A: 1.1 Med Peak E' Ab: 10.1 cm/sec Med E/e': 8.7 Lat Peak E' Ab: 16.2 cm/sec Lat E/e': 5.4 Procedure A complete two-dimensional transthoracic echocardiogram was performed (2D, M-mode, Doppler and color flow Doppler). Left Ventricle The left ventricle is normal in size. Left ventricular systolic function is normal. Ejection Fraction = 60- 65%. No regional wall motion abnormalities noted. Right Ventricle The right ventricle is normal size. The right ventricular systolic function is normal. RV systolic TD I is 15 cm/s. Atria The left atrial size is normal. Right atrial size is normal. Mitral Valve The mitral valve is normal in structure and function. There is mild mitral regurgitation. Tricuspid Valve The tricuspid valve is normal in structure and function. There is mild tricuspid regurgitation. Right ventricular systolic pressure is normal. Aortic Valve The aortic valve is normal in structure and function. No aortic regurgitation is present. Pulmonic Valve The pulmonic valve is not well visualized. Great Vessels The aortic root is normal size. Pericardium/Pleura There is no pericardial effusion. Interpretation Summary The left ventricle is normal in size. Left ventricular systolic function is normal. No regional wall motion abnormalities noted. Ejection Fraction = 60-65%. The right ventricular systolic function is normal. The left atrial size is normal. Right atrial size is normal. There is mild mitral regurgitation. There is mild tricuspid regurgitation. There is no pericardial effusion. Previous study is not available for comparison Rafael Patel MD 02/14/2018 09:55 AM
--- NOTE | 2018-02-14 10:23 | PN ---
Progress Note (short form) - Note Progress Note: GI NOte ( ERCP coverage of Dr Morales): I interviewed and examined the patient who now recall having taken 10 antifungal pills about 20 days ago. His bilirubin has fallen from 8.0 to 1.8. The only scenario that I can use t explain such a dramatic change is passage of a stones through he CBD. I discussed the echocardiogram with Dr Rafael Patel who finds only mild MR and TR with a normal ejection fraction. At this point I have advised proceeding with ERCP to exclude residual stones. I have discussed ERCP in detail with Jon and have informed him of the potential for such complications as hemorrhage, perforation and ERCP induced pancreatittis causing pain, vomiting and multiorgan failure. After I answered his and his 's questions Jon signed an informed consent for ERCP.
[2018-02-14] MEDS ORDERED: INDOMETHACIN 50 MG RECTAL SUPPOSITORY PR ONE (11:00)
[2018-02-14] MEDS ORDERED: DESFLURANE GAS 240 ML BOTTLE IH ONE (11:17)
[2018-02-14] MEDS ORDERED: IOHEXOL 300 MG/ML INFUS..BTL IV ONE (11:45)
[2018-02-14] MEDS ORDERED: LACTATED RINGERS SOLUTION 1,000 ML/1,000 ML INFUS.BAG IV SCH ×2 (12:30→18:30)
[2018-02-14] MEDS: KCL 10 MEQ IVPB 10 MEQ/100 ML INFUS.BAG IVPB SCH ×2 (13:59→16:13)
--- NOTE | 2018-02-14 14:55 | PN ---
Progress Note, Physician History of Present Illness: Pt with acute cholecystitis with sludge in gallbladder but no clear stones by US or other imaging. MRCP with no ductal dilation, no intraductal stones, sludge and thickened gallbladder wall. Bili peaked at 8.1, down to 1.8 this morning. WBC normal, no fevers. Pt seen in room in bed with at bedside. On antibiotics and IV fluids. Had ERCP earlier by GI with extraction of sludge/ stone fragments from cbd with sphincterotomy and small ulceration in duodenal bulb noted. No pain currently. Awake, sitting on edge of bed. - Current Medication List Current Medications: Active Medications Metronidazole (Flagyl 500mg Premixed Ivpb -) 500 mg in 100 mls @ 100 mls/hr IVPB TID [facility] Last Admin: 02/14/18 13:59 Dose: 100 mls/hr Levofloxacin (Levaquin 500 Mg Premixed Ivpb -) 500 mg in 100 mls @ 100 mls/hr IVPB DAILY [facility]; Protocol Last Admin: 02/13/18 10:27 Dose: 100 mls/hr Lactated Ringer's (Lactated Ringers Solution) 1,000 ml in 1,000 mls @ 250 mls/ hr IV ASDIR [facility] Stop: 02/14/18 18:30 Last Admin: 02/14/18 13:53 Dose: 250 mls/hr Lactated Ringer's (Lactated Ringers Solution) 1,000 ml in 1,000 mls @ 200 mls/ hr IV ASDIR [facility] Stop: 02/15/18 00:30 Lactated Ringer's (Lactated Ringers Solution) 1,000 ml in 1,000 mls @ 175 mls/ hr IV ASDIR [facility] Stop: 02/15/18 06:30 Lactated Ringer's (Lactated Ringers Solution) 1,000 ml in 1,000 mls @ 150 mls/ hr IV ASDIR [facility] Insulin Aspart (Novolog Vial Sliding Scale -) 1 vial SQ ACHS [facility]; Protocol Last Admin: 02/14/18 14:11 Dose: Not Given - Objective Vital Signs: Vital Signs Temperature 98.6 F 02/14/18 12:41 Pulse Rate 75 02/14/18 14:03 Respiratory Rate 20 02/14/18 14:03 Blood Pressure 144/87 02/14/18 14:03 O2 Sat by Pulse Oximetry (%) 100 02/14/18 12:44 Constitutional: Yes: Well Nourished, No Distress, Calm Eyes: Yes: Conjunctiva Clear, EOM Intact. No: Sclera Icterus HENT: Yes: Atraumatic, Normocephalic Gastrointestinal: Yes: Soft. No: Distention, Tenderness, Tenderness, Epigastrium Extremities: No: Cool, Cyanosis Integumentary: No: Jaundice, Rash Neurological: Yes: Alert, Oriented Labs: CBC, BMP 02/14/18 06:00 02/14/18 06:00 INR, PTT INR 1.27 (0.83-1.09) H 02/14/18 06:00 K low - getting riders CMP Sodium 140 mmol/L (136-145) 02/14/18 06:00 Potassium 3.1 mmol/L (3.5-5.1) L 02/14/18 06:00 Chloride 105 mmol/L (98-107) 02/14/18 06:00 Carbon Dioxide 28 mmol/L (21-32) 02/14/18 06:00 Anion Gap 7 MMOL/L (8-16) L 02/14/18 06:00 BUN 8 mg/dL (7-18) 02/14/18 06:00 Creatinine 0.6 mg/dL (0.55-1.3) 02/14/18 06:00 Creat Clearance w eGFR > 60 (>60) 02/14/18 06:00 POC Glucometer 94 UNITS (80-120) 02/12/18 21:40 Random Glucose 100 mg/dL (74-106) 02/14/18 06:00 Hemoglobin A1c % 5.6 % (4.2-6.3) 02/12/18 06:15 Calcium 8.4 mg/dL (8.5-10.1) L 02/14/18 06:00 Phosphorus 2.8 mg/dL (2.5-4.9) 02/14/18 06:00 Magnesium 1.9 mg/dL (1.8-2.4) 02/14/18 06:00 Ferritin 101.3 ng/ml (8-388) 02/13/18 06:10 Total Bilirubin 1.8 mg/dL (0.2-1) H 02/14/18 06:00 Direct Bilirubin 5.7 mg/dL (0.0-0.2) H 02/13/18 06:10 AST 51 U/L (15-37) H 02/14/18 06:00 ALT 185 U/L (13-61) H 02/14/18 06:00 Alkaline Phosphatase 166 U/L (45-117) H 02/14/18 06:00 Creatine Kinase 113 IU/L (26-308) 02/11/18 17:31 Troponin I < 0.02 ng/ml (0.00-0.05) 02/11/18 22:00 Total Protein 6.7 g/dl (6.4-8.2) 02/14/18 06:00 Albumin 3.2 g/dl (3.4-5.0) L 02/14/18 06:00 Lipase 183 U/L (73-393) 02/13/18 06:10 LFTs down today Problem List - Problems (1) Calculus of gallbladder with acute cholecystitis without obstruction Assessment/Plan: sand/sludge in gallbladder with acute cholecystitis by imaging but no clear stones clinically improved but with bilirubin spike and elevated LFTs, now coming down no pain or tenderness clears for dinner, NPO after midnight trend labs in am to ensure no chemical pancreatitis GI/DVT prophylaxis GI following - s/p ERCP today continue antibiotics Discussed with patient risks, benefits and alternatives of laparoscopic possible open cholecystectomy, including but not limited to bleeding, infection , injury to adjacent structures, bile leak or ductal injury, intraabdominal abscess, incisional hernia, need for further procedures; alternatives include antibiotics, delayed or no surgery - risks of this include recurrence of biliary colic, cholecystitis, cholangitis, pancreatitis and attendant consequences. Patient desires to proceed with operation - will take to OR tomorrow for above, pending am labs and no evidence of pancreatitis post ERCP. Informed consent signed for same. Code(s): K80.00 - CALCULUS OF GALLBLADDER W ACUTE CHOLECYST W/O OBSTRUCTION (2) Sludge in gallbladder Code(s): K82.8 - OTHER SPECIFIED DISEASES OF GALLBLADDER (3) Hyperbilirubinemia Assessment/Plan: down today Code(s): E80.6 - OTHER DISORDERS OF BILIRUBIN METABOLISM (4) Holosystolic murmur Assessment/Plan: echo noted - normal ER, mild MR, mild TR Code(s): R01.1 - CARDIAC MURMUR, UNSPECIFIED
--- NOTE | 2018-02-14 16:59 | PN ---
Physical Exam: SUBJECTIVE: Patient seen and examined at bedside this morning. He is currently NPO and denies abdominal pain, nausea, vomiting. Last bowel movement was yesterday afternoon, normal without hematochezia, or melena. Urinating well without dysuria, hematuria. Denies headaches, fevers, chills, shortness of breath, chest pain, palpitations. OBJECTIVE: Vital Signs Period Temp Pulse Resp BP Sys/De La Cruz Pulse Ox Last 24 Hr 97.5 F-98.8 F 67-90 12-20 127-144/66-87 99-100 GENERAL: Patient is awake, alert, and fully oriented, in no acute distress. Appears stated age. HEAD: Normal with no signs of trauma. EYES: Pupils equal, round and reactive to light, extraocular movements intact b/ l. Sclera anicteric, conjunctiva non-injected b/l. EARS, NOSE, THROAT: Oropharynx clear without exudates erythema, or lesion. Moist mucous membranes. NECK: Normal range of motion, supple without lymphadenopathy, JVD, or masses. LUNGS: Breath sounds equal, clear to auscultation bilaterally. No wheezes, no rhonchi. No accessory muscle use. HEART: Regular rate and rhythm, normal S1 and S2 without murmur, rub or gallop. ABDOMEN: Soft, nontender to light and deep palpation, not distended. Normoactive bowel sounds X4 quadrants, no guarding, no rebound tendernes. No hepatomegaly appreciated. Negative Bethea's sign. MUSCULOSKELETAL: Normal range of motion at all joints. Strength 5/5 b/l upper and lower extremities. UPPER EXTREMITIES: 2+ radial pulses b/l, warm, well-perfused. LOWER EXTREMITIES: 2+ dorsalis pedis pulses b/l, warm, well-perfused. No calf tenderness b/l. No lower extremity edema. NEUROLOGICAL: Cranial nerves II-XII intact. Normal speech. Normal gait. PSYCHIATRIC: Cooperative. Good eye contact. Appropriate mood and affect. SKIN: Warm, dry, normal turgor, no rashes or lesions noted, normal capillary refill. Laboratory Results - last 24 hr 02/14/18 02/14/18 02/14/18 06:00 06:00 06:00 WBC 4.3 RBC 4.56 Hgb 13.2 Hct 39.6 MCV 86.9 MCH 28.9 MCHC 33.2 RDW 13.1 Plt Count 161 MPV 9.3 Absolute Neuts (auto) 2.3 Neutrophils % 52.8 D Lymphocytes % 34.9 D Monocytes % 9.3 Eosinophils % 2.1 Basophils % 0.9 Nucleated RBC % 0 PT with INR 15.00 H INR 1.27 H Sodium 140 Potassium 3.1 L Chloride 105 Carbon Dioxide 28 Anion Gap 7 L BUN 8 Creatinine 0.6 Creat Clearance w eGFR > 60 POC Glucometer Random Glucose 100 Calcium 8.4 L Phosphorus 2.8 Magnesium 1.9 Total Bilirubin 1.8 H AST 51 H ALT 185 H Alkaline Phosphatase 166 H Total Protein 6.7 Albumin 3.2 L Blood Type Antibody Screen 02/14/18 02/14/18 06:00 16:15 WBC RBC Hgb Hct MCV MCH MCHC RDW Plt Count MPV Absolute Neuts (auto) Neutrophils % Lymphocytes % Monocytes % Eosinophils % Basophils % Nucleated RBC % PT with INR INR Sodium Potassium Chloride Carbon Dioxide Anion Gap BUN Creatinine Creat Clearance w eGFR POC Glucometer 178 Random Glucose Calcium Phosphorus Magnesium Total Bilirubin AST ALT Alkaline Phosphatase Total Protein Albumin Blood Type O POSITIVE Antibody Screen Negative Active Medications Generic Name Dose Route Start Last Admin Trade Name Freq PRN Reason Stop Dose Admin Metronidazole 500 mg in 100 mls @ 100 mls/hr 02/12/18 05:00 02/14/18 13:59 Flagyl 500mg Premixed Ivpb - IVPB 100 mls/hr TID LLUVIA Administration Levofloxacin 500 mg in 100 mls @ 100 mls/hr 02/12/18 05:00 02/14/18 14:59 Levaquin 500 Mg Premixed Ivpb - IVPB 100 mls/hr DAILY LLUVIA Administration Protocol Lactated Ringer's 1,000 ml in 1,000 mls @ 250 mls/hr 02/14/18 12:30 02/14/18 13:53 Lactated Ringers Solution IV 02/14/18 18:30 250 mls/hr ASDIR LLUVIA Administration Lactated Ringer's 1,000 ml in 1,000 mls @ 200 mls/hr 02/14/18 18:30 Lactated Ringers Solution IV 02/15/18 00:30 ASDIR LLUVIA Lactated Ringer's 1,000 ml in 1,000 mls @ 175 mls/hr 02/15/18 00:30 Lactated Ringers Solution IV 02/15/18 06:30 ASDIR LLUVIA Lactated Ringer's 1,000 ml in 1,000 mls @ 150 mls/hr 02/15/18 06:30 Lactated Ringers Solution IV ASDIR LLUVIA Insulin Aspart 1 vial 02/12/18 07:00 02/14/18 16:16 Novolog Vial Sliding Scale - SQ Not Given ACHS LLUVIA Protocol IMAGING: Ultrasound of gallbladder shows inspissated bile/ sludge within the gallbladder lumen. No calculus noted. Mild distension of the gallbladder. ASSESSMENT/PLAN: Patient is a 42 year old male with no significant past medical or surgical history presenting with sudden onset abdominal pain. Cholecystitis -Levofloxacin 5000mg IV daily -Flagyl 500mg IV Q8H -Surgical consult (Dr. Negron) appreciated. Patient will undergo cholecystectomy -NPO after midnight for cholesystectmy tomorrow. -GI consult (Dr. Murray) appreciated. -F/U ERCP results Heart murmur -Cardiac echo shows normal LV size, and function. EF 65%. Mild MR, TR. Elevated blood glucose -HbA1c 5.6 -Patient will follow up with primary care physician as outpatient FEN -IV Lactated Ringers 200mL/ hour -Will follow CMP -NPO Prophylaxis -Lovenox 40mg subq daily, held after midnight for cholecystectomy tomorrow. Disposition -Continue care in medical-surgical floor. Laparoscopic cholecystectomy tomorrow. Visit type - Emergency Visit Emergency Visit: Yes ED Registration Date: 02/11/18 Care time: The patient presented to the Emergency Department on the above date and was hospitalized for further evaluation of their emergent condition. - New Patient This patient is new to me today: No - Critical Care Critical Care patient: No - Discharge Referral Referred to [facility] Med P.C.: No
--- NOTE | 2018-02-14 17:05 | PN ---
Teaching Attending Note Name of Resident: Toña Medellin ATTENDING PHYSICIAN STATEMENT I saw and evaluated the patient. I reviewed the resident's note and discussed the case with the resident. I agree with the resident's findings and plan as documented. SUBJECTIVE: Seen and examined; had ERCP today with extraction of stone fragments and sludge ; for his cholecystitis sgy will be taking him tomorrow. He is pain free; all of his questions have been answered. Hemodynamically stable and afebrile. Will trend labs to r/o chemical pancreatitis post ERCP. OBJECTIVE: All labs and vitals reviewed Gen: AAOx3, NAD, resting in bed GI: NT ND +BS all 4 quads CV: RRR s1/2 no mgr Lungs: CTAB with sym exp Ext: No edema, positive pulses HEENT: NC AT EOMI PERRLA Neuro: CN2-12 grossly intact, moves all 4 ext. ASSESSMENT AND PLAN: 1) Acute Cholecystitis -Likely 2/2 gallstones retrieved in ERCP; trend CMP, continue abx. NPO at [place] for lap ricky tomorrow. Discussed with patient 2) Heart Murmur-stable No change to managment of other conditions; as per resident note.
[2018-02-15] MEDS ORDERED: LACTATED RINGERS SOLUTION 1,000 ML/1,000 ML INFUS.BAG IV SCH ×3 (00:30→14:46)
[2018-02-15 06:06] LABS: SERUM IRON SATURATION 51 % (15-55); TOTAL IRON BINDING CAPACITY 251 ug/dL (250-450); UIBC 122 ug/dL (111-343)
[2018-02-15 06:06] LABS: HBSAG SCREEN Negative (Negative); HEP A AB, IGM Negative (Negative); HEP B CORE AB, TOT Negative (Negative)
[2018-02-15] MEDS: INSULIN SLIDING SCALE (NOVOLOG) 1 VIAL SQ SCH ×2 (06:36→11:27)
[2018-02-15 07:22] LABS: EOS % 1.4 % (0-4.5); LYMPH % 25.9 % (8-40); MCH 29.1 pg (25.7-33.7); MCHC 33.3 g/dl (32.0-35.9); MEAN CELL VOLUME 87.2 fl (80-96); MEAN PLT VOLUME 9.3 fl (7.5-11.1); MONO % 8.5 % (3.8-10.2); NEUT % 63.2 % (42.8-82.8); PLATELET COUNT 162 K/MM3 (134-434); RBC 4.47 M/mm3 (4.00-5.60); RDW 13.2 % (11.9-15.9); WHITE BLOOD COUNT 4.6 K/mm3 (4.0-10.0)
[2018-02-15 07:35] LABS: INR 1.29 (0.83-1.09); PROTHROMBIN TIME (PATIENT) 15.3 SEC (9.7-13.0)
[2018-02-15 08:04] LABS: ALBUMIN 3.1 g/dl (3.4-5.0); ALK PHOS 151 U/L (45-117); AMYLASE 127 U/L (25-115); ANION GAP 7 MMOL/L (8-16); BILIRUBIN,DIRECT 0.6 mg/dL (0.0-0.2); BILIRUBIN,TOTAL 1.3 mg/dL (0.2-1); BLOOD UREA NITROGEN 5 mg/dL (7-18); CALCIUM 8.6 mg/dL (8.5-10.1); CHLORIDE 108 mmol/L (98-107); CO2 30 mmol/L (21-32); CREATININE 0.5 mg/dL (0.55-1.3); GLUCOSE,RANDOM 96 mg/dL (74-106); LIPASE 540 U/L (73-393); MAGNESIUM 1.7 mg/dL (1.8-2.4); PHOSPHOROUS 2.9 mg/dL (2.5-4.9); POTASSIUM 3.4 mmol/L (3.5-5.1); SGOT/AST 41 U/L (15-37); SGPT/ALT 143 U/L (13-61); SODIUM 145 mmol/L (136-145); TOT PROT 6.4 g/dl (6.4-8.2)
[2018-02-15] MEDS: KCL 10 MEQ IVPB 10 MEQ/100 ML INFUS.BAG IVPB SCH ×3 (08:50→13:43)
[2018-02-15] MEDS ORDERED: BUPIVACAINE HCL/PF 0.5% (5MG/ML) 10 ML VIAL ONE (10:19)
[2018-02-15] MEDS ORDERED: BUPIVACAINE HCL/PF 0.25% (2.5MG/ML) 10 ML VIAL ONE (10:20)
[2018-02-15] MEDS ORDERED: PROPOFOL 20 ML ONE (11:16)
[2018-02-15] MEDS ORDERED: LIDOCAINE HCL/PF 2% SDV 5ML VIAL ONE (11:17)
[2018-02-15] MEDS ORDERED: DEXAMETHASONE SOD PHOSPHATE 4 MG/1 ML VIAL ONE (11:17)
[2018-02-15] MEDS ORDERED: SODIUM CHLORIDE 0.9% P/F 10 ML VIAL IJ ONE (11:17)
[2018-02-15] MEDS ORDERED: ceFAZolin SODIUM 1 GM VIAL ONE (11:17)
[2018-02-15] MEDS ORDERED: ONDANSETRON 4 MG/2 ML VIAL ONE (11:17)
[2018-02-15] MEDS ORDERED: MIDAZOLAM HCL 2 MG/2 ML SINGLE DOSE VIAL ONE (11:17)
[2018-02-15] MEDS ORDERED: ROCURONIUM BROMIDE 50 MG/5 ML VIAL ONE (11:17)
[2018-02-15] MEDS ORDERED: GLYCOPYRROLATE 0.2 MG/1 ML VIAL ONE (13:57)
[2018-02-15] MEDS ORDERED: KETOROLAC TROMETHAMINE 30 MG/1 ML VIAL ONE (13:57)
[2018-02-15] MEDS ORDERED: NEOSTIGMINE METHYLSULFATE 0.5 MG/ML - 10 ML MDV ONE (13:57)
[2018-02-15] MEDS ORDERED: ePHEDrine SULFATE 50 MG/1 ML AMPULE ONE (14:00)
[2018-02-15] MEDS ORDERED: BUPIVACAINE HCL/PF 0.5% (5MG/ML) 10 ML VIAL IJ ONE ×2 (14:09)
[2018-02-15] MEDS ORDERED: BENZOIN TINCTURE SWABSTICK TP ONE (14:13)
--- NOTE | 2018-02-15 14:43 | OP ---
Operative Note - Note: Operative Date: 02/15/18 Pre-Operative Diagnosis: acute cholecystitis, choledocholithiasis s/p ERCP Operation: laparoscopic cholecystectomy Findings: distended gallbladder, critical view identified; no palpable stones in gb Post-Operative Diagnosis: Same as Pre-op Surgeon: Robert Negron Sail Repairer: Ervin Crystal (josiah/Souleymane Sparks, MS3) Anesthesiologist/RN WELLNESS: [place] Ly Anesthesia: General, Local (20ml 0.5% marcaine) Specimens Removed: gallbladder to pathology Estimated Blood Loss (mls): 10 Fluid Volume Replaced (mls): 1,000 (crystalloid) Operative Report Dictated: Yes
[2018-02-15] MEDS ORDERED: oxyCODONE HCL 5 MG TABLET PO PRN ×2 (14:45→15:23)
--- NOTE | 2018-02-15 15:14 | PN ---
Physical Exam: SUBJECTIVE: Patient seen and examined at bedside. He is POD #0 s/p laparoscpic cholecystectomy. Tolerating liquids without abdominal pain, nausea, vomiting. Has urinated without dysuria, hematuria. Has not passed flatus or had bowel movement. Denies fevers, chill, shortness of breath, chest pain, palpitations. OBJECTIVE: Vital Signs Period Temp Pulse Resp BP Sys/De La Cruz Pulse Ox Last 24 Hr 98.4 F-99.4 F 76-89 20-20 126-138/69-77 100-100 GENERAL: Patient is awake, alert, and fully oriented, in no acute distress. Appears stated age. HEAD: Normal with no signs of trauma. EYES: Pupils equal, round and reactive to light, extraocular movements intact b/ l. Sclera anicteric, conjunctiva non-injected b/l. EARS, NOSE, THROAT: Oropharynx clear without exudates erythema, or lesion. Moist mucous membranes. NECK: Normal range of motion, supple without lymphadenopathy, JVD, or masses. LUNGS: Breath sounds equal, clear to auscultation bilaterally. No wheezes, no rhonchi. No accessory muscle use. HEART: Regular rate and rhythm, normal S1 and S2 with holosystolic murmur auscultated over left upper sternal border. ABDOMEN: Soft, nontender to light and deep palpation, not distended. Normoactive bowel sounds X4 quadrants, no guarding, no rebound tendernes. No hepatomegaly appreciated. MUSCULOSKELETAL: Normal range of motion at all joints. Strength 5/5 b/l upper and lower extremities. UPPER EXTREMITIES: 2+ radial pulses b/l, warm, well-perfused. LOWER EXTREMITIES: 2+ dorsalis pedis pulses b/l, warm, well-perfused. No calf tenderness b/l. No lower extremity edema. NEUROLOGICAL: Cranial nerves II-XII intact. Normal speech. Normal gait. PSYCHIATRIC: Cooperative. Appropriate mood and affect. SKIN: Warm, dry. Abdominal surgical incisions noted, bandaged clean without bleeding, or drainage. Laboratory Results - last 24 hr 02/12/18 02/13/18 02/14/18 06:15 12:38 16:15 WBC RBC Hgb Hct MCV MCH MCHC RDW Plt Count MPV Absolute Neuts (auto) Neutrophils % Lymphocytes % Monocytes % Eosinophils % Basophils % Nucleated RBC % PT with INR INR PTT (Actin FS) Sodium Potassium Chloride Carbon Dioxide Anion Gap BUN Creatinine Creat Clearance w eGFR POC Glucometer 178 Random Glucose Calcium Phosphorus Magnesium Iron 129 TIBC 251 Iron Saturation 51 Total Bilirubin Direct Bilirubin AST ALT Alkaline Phosphatase C-Reactive Protein Total Protein Albumin Total Amylase Lipase Hep A IgM Ab Confirm Negative Hepatitis A Ab Total Positive H Hep Bs Antigen Negative Hep Bs Antibody Non reactive Hep B Core Total Ab Negative HCV Quantitation Hcv not detected HCV RNA log copies/mL TNP 02/15/18 02/15/18 02/15/18 06:00 06:00 06:00 WBC 4.6 RBC 4.47 Hgb 13.0 Hct 39.0 MCV 87.2 MCH 29.1 MCHC 33.3 RDW 13.2 Plt Count 162 MPV 9.3 Absolute Neuts (auto) 2.9 Neutrophils % 63.2 Lymphocytes % 25.9 D Monocytes % 8.5 Eosinophils % 1.4 Basophils % 1.0 Nucleated RBC % 0 PT with INR 15.30 H INR 1.29 H PTT (Actin FS) Sodium 145 Potassium 3.4 L Chloride 108 H Carbon Dioxide 30 Anion Gap 7 L BUN 5 L Creatinine 0.5 L Creat Clearance w eGFR > 60 POC Glucometer Random Glucose 96 Calcium 8.6 Phosphorus 2.9 Magnesium 1.7 L Iron TIBC Iron Saturation Total Bilirubin 1.3 H Direct Bilirubin 0.6 H AST 41 H ALT 143 H Alkaline Phosphatase 151 H C-Reactive Protein 0.5 H Total Protein 6.4 Albumin 3.1 L Total Amylase 127 H Lipase 540 H Hep A IgM Ab Confirm Hepatitis A Ab Total Hep Bs Antigen Hep Bs Antibody Hep B Core Total Ab HCV Quantitation HCV RNA log copies/mL 02/15/18 06:00 WBC RBC Hgb Hct MCV MCH MCHC RDW Plt Count MPV Absolute Neuts (auto) Neutrophils % Lymphocytes % Monocytes % Eosinophils % Basophils % Nucleated RBC % PT with INR INR PTT (Actin FS) 28.6 Sodium Potassium Chloride Carbon Dioxide Anion Gap BUN Creatinine Creat Clearance w eGFR POC Glucometer Random Glucose Calcium Phosphorus Magnesium Iron TIBC Iron Saturation Total Bilirubin Direct Bilirubin AST ALT Alkaline Phosphatase C-Reactive Protein Total Protein Albumin Total Amylase Lipase Hep A IgM Ab Confirm Hepatitis A Ab Total Hep Bs Antigen Hep Bs Antibody Hep B Core Total Ab HCV Quantitation HCV RNA log copies/mL Active Medications Generic Name Dose Route Start Last Admin Trade Name Freq PRN Reason Stop Dose Admin Acetaminophen 650 mg 02/15/18 18:00 Tylenol - PO Q6H LLUVIA Metronidazole 500 mg in 100 mls @ 100 mls/hr 02/12/18 05:00 02/15/18 05:53 Flagyl 500mg Premixed Ivpb - IVPB 100 mls/hr TID LLUVIA Administration Levofloxacin 500 mg in 100 mls @ 100 mls/hr 02/12/18 05:00 02/15/18 10:21 Levaquin 500 Mg Premixed Ivpb - IVPB 100 mls/hr DAILY LLUVIA Administration Protocol Lactated Ringer's 1,000 ml in 1,000 mls @ 100 mls/hr 02/15/18 14:46 Lactated Ringers Solution IV ASDIR LLUVIA Ibuprofen 600 mg 02/15/18 21:00 Motrin - PO Q6H LLUVIA Insulin Aspart 1 vial 02/12/18 07:00 02/15/18 11:27 Novolog Vial Sliding Scale - SQ Not Given ACHS [facility] Protocol Oxycodone HCl 5 mg 02/15/18 14:45 Roxicodone - PO Q6H PRN Pain Level 7 - 10 BREAKTHROUGH IMAGING: -Ultrasound of gallbladder upon admission shows inspissated bile/ sludge within the gallbladder lumen. No calculus noted. Mild distension of the gallbladder. -MRI abdomen showed mild diffuse gallbladder wall edema with overdistension, suggestive of cholecystitis. Inspissated bile/ sludge noted. No biliary tract dilation noted. -ERCP showed normal ampulla, with stone fragments swept from CBD. ASSESSMENT/PLAN: Patient is a 42 year old male with no significant past medical or surgical history presenting with sudden onset abdominal pain. Cholecystitis -Patient is POD #0 s/p laparoscpic cholecystectomy -Levofloxacin 5000mg IV daily (day 4) -Flagyl 500mg IV Q8H (day 4) -GI consult (Dr. Murray) appreciated. -Tylenol 650mg PO Q6H -Ibuprofen 600mg PO Q6H -Oxycodone 5mg Q6H PRN -Zofran 4mg IV Q6H PRN for nausea Heart murmur -Cardiac echo shows normal LV size, and function. EF 65%. Mild MR, TR. -Patient will follow up with sort operations supervisor as outpatient. Elevated blood glucose -HbA1c 5.6 -Patient will follow up with primary care physician for blood glucose management as outpatient FEN -IV Lactated Ringers 100mL/ hour -Will follow CMP -Regular diet tonight Prophylaxis -SCDs for tonight -Lovenox 40mg subq held as pt is s/p surgery. Will consider reinstating tomorrow , discuss with surgery. Disposition -Continue care in medical-surgical floor. Visit type - Emergency Visit Emergency Visit: Yes ED Registration Date: 02/11/18 Care time: The patient presented to the Emergency Department on the above date and was hospitalized for further evaluation of their emergent condition. - New Patient This patient is new to me today: No - Critical Care Critical Care patient: No - Discharge Referral Referred to [facility] Med P.C.: No
[2018-02-15] MEDS ORDERED: ONDANSETRON 4 MG/2 ML VIAL IVPUSH PRN (15:32)
[2018-02-15] MEDS: LACTATED RINGERS SOLUTION 1,000 ML/1,000 ML INFUS.BAG IV SCH ×2 (15:45→19:16)
--- NOTE | 2018-02-15 15:48 | PN ---
Teaching Attending Note Name of Resident: Toña Medellin ATTENDING PHYSICIAN STATEMENT I saw and evaluated the patient. I reviewed the resident's note and discussed the case with the resident. I agree with the resident's findings and plan as documented. SUBJECTIVE: Doing well; OR today for Cholecystectomy. Doing well post-op. OBJECTIVE: VSS and all labs reviewed Gen: AAOx3, NAD CV: RRR, s1/2, no change in murmur GI: Soft, NT ND, dressings cdi Skin: No rashes, abrasions Psych: Mentating well, normal affect, appropriate behavior Echo reviewed; no significant valvular disease ASSESSMENT AND PLAN: 1) Acute Cholecystitis -POD#0; followup with sgy recs. If tolerating PO DC home -Followup GB path as OP -Finish up course PO abx 2) Murmur -Echo reviewed; stable. Followup OP Anticipate DC in AM Full Code
[2018-02-15] MEDS ORDERED: INSULIN SLIDING SCALE (NOVOLOG) 1 VIAL SQ SCH (16:30)
[2018-02-15] MEDS: ACETAMINOPHEN 325 MG TABLET (FP) PO SCH (17:31)
[2018-02-15] MEDS ORDERED: ACETAMINOPHEN 325 MG TABLET (FP) PO SCH (18:00)
[2018-02-15] MEDS ORDERED: IBUPROFEN 600 MG TABLET (FP) PO SCH (21:00)
[2018-02-15] MEDS: IBUPROFEN 600 MG TABLET (FP) PO SCH (21:42)
[2018-02-16] MEDS: ACETAMINOPHEN 325 MG TABLET (FP) PO SCH ×3 (00:07→11:01)
[2018-02-16] MEDS: IBUPROFEN 600 MG TABLET (FP) PO SCH ×3 (02:11→15:18)
[2018-02-16 07:48] LABS: BASO % 0.3 % (0-2.0); EOS % 0.2 % (0-4.5); HEMATOCRIT 37.9 % (35.4-49); HEMOGLOBIN 12.4 GM/dL (11.7-16.9); LYMPH % 17.2 % (8-40); MCHC 32.9 g/dl (32.0-35.9); MEAN CELL VOLUME 88.2 fl (80-96); MEAN PLT VOLUME 9.6 fl (7.5-11.1); MONO % 9.2 % (3.8-10.2); NEUT % 73.1 % (42.8-82.8); PLATELET COUNT 161 K/MM3 (134-434); RBC 4.29 M/mm3 (4.00-5.60); RDW 13.3 % (11.9-15.9); WHITE BLOOD COUNT 8.1 K/mm3 (4.0-10.0)
[2018-02-16 08:01] LABS: ALBUMIN 3.3 g/dl (3.4-5.0); ALK PHOS 133 U/L (45-117); ANION GAP 6 MMOL/L (8-16); BILIRUBIN,TOTAL 1.2 mg/dL (0.2-1); BLOOD UREA NITROGEN 10 mg/dL (7-18); CALCIUM 8.9 mg/dL (8.5-10.1); CHLORIDE 103 mmol/L (98-107); CO2 29 mmol/L (21-32); CREATININE 0.6 mg/dL (0.55-1.3); GLUCOSE,RANDOM 98 mg/dL (74-106); LIPASE 128 U/L (73-393); POTASSIUM 3.3 mmol/L (3.5-5.1); SGOT/AST 105 U/L (15-37); SGPT/ALT 191 U/L (13-61); SODIUM 138 mmol/L (136-145); TOT PROT 6.5 g/dl (6.4-8.2)
--- NOTE | 2018-02-16 10:19 | PN ---
Progress Note, Physician History of Present Illness: Pt with acute cholecystitis, s/p ERCP with extraction of sludge from CBD and sphincterotomy, now s/p lap ricky Feeling well Has ambulated, voided, tolerating diet No complaints of pain, declined ibuprofen this am Completing IV antibiotics LFTs down today and lipase back to normal Seen and examined in room with at bedside - Current Medication List Current Medications: Active Medications Acetaminophen (Tylenol -) 650 mg PO Q6H LLUVIA Last Admin: 02/16/18 06:36 Dose: 650 mg Fentanyl (Sublimaze Injection -) 50 mcg IVPUSH Q5M PRN PRN Reason: PAIN-PACU ORDER X 4 DOSES ONLY Last Admin: 02/15/18 14:50 Dose: 50 mcg Lactated Ringer's (Lactated Ringers Solution) 1,000 ml in 1,000 mls @ 100 mls/ hr IV ASDIR LLUVIA Last Admin: 02/15/18 19:16 Dose: Not Given Levofloxacin (Levaquin 500 Mg Premixed Ivpb -) 500 mg in 100 mls @ 100 mls/hr IVPB DAILY LLUVIA; Protocol Metronidazole (Flagyl 500mg Premixed Ivpb -) 500 mg in 100 mls @ 100 mls/hr IVPB Q8H-IV LLUVIA Last Admin: 02/16/18 09:01 Dose: 100 mls/hr Ibuprofen (Motrin -) 600 mg PO Q6H LLUVIA Last Admin: 02/16/18 09:07 Dose: Not Given Ondansetron HCl (Zofran Injection) 4 mg IVPUSH Q6H PRN PRN Reason: NAUSEA AND/OR VOMITING Oxycodone HCl (Roxicodone -) 5 mg PO Q6H PRN PRN Reason: Pain Level 7 - 10 BREAKTHROUGH - Objective Vital Signs: Vital Signs Temperature 98.7 F 02/16/18 06:08 Pulse Rate 85 02/16/18 06:08 Respiratory Rate 18 02/16/18 06:08 Blood Pressure 142/81 02/16/18 06:08 O2 Sat by Pulse Oximetry (%) 100 02/15/18 21:00 Constitutional: Yes: Well Nourished, No Distress, Calm Eyes: Yes: Conjunctiva Clear, EOM Intact. No: Sclera Icterus HENT: Yes: Atraumatic, Normocephalic Gastrointestinal: Yes: Soft, Distention (minimal), Tenderness (incisional only) , Tenderness, Epigastrium (incisional only) Extremities: No: Cool, Cyanosis Integumentary: Yes: Incision (x4 dressed). No: Jaundice, Rash Wound/Incision: Yes: Steri Strips (under dressings), Dressing Dry and Intact ( except umbilicus - serosang on dressing under tegaderm), Dressing Removed (at umbilicus and replaced with clean one; steris with dried blood, no drainage) Neurological: Yes: Alert, Oriented Labs: CBC, BMP 02/16/18 06:45 02/16/18 06:45 CMP Sodium 138 mmol/L (136-145) 02/16/18 06:45 Potassium 3.3 mmol/L (3.5-5.1) L 02/16/18 06:45 Chloride 103 mmol/L (98-107) 02/16/18 06:45 Carbon Dioxide 29 mmol/L (21-32) 02/16/18 06:45 Anion Gap 6 MMOL/L (8-16) L 02/16/18 06:45 BUN 10 mg/dL (7-18) 02/16/18 06:45 Creatinine 0.6 mg/dL (0.55-1.3) 02/16/18 06:45 Creat Clearance w eGFR > 60 (>60) 02/16/18 06:45 POC Glucometer 96 UNITS (80-120) 02/16/18 06:18 Random Glucose 98 mg/dL (74-106) 02/16/18 06:45 Hemoglobin A1c % 5.6 % (4.2-6.3) 02/12/18 06:15 Calcium 8.9 mg/dL (8.5-10.1) 02/16/18 06:45 Phosphorus 2.9 mg/dL (2.5-4.9) 02/15/18 06:00 Magnesium 1.7 mg/dL (1.8-2.4) L 02/15/18 06:00 Iron 129 ug/dL (38-169) 02/13/18 12:38 TIBC 251 ug/dL (250-450) 02/13/18 12:38 Iron Saturation 51 % (15-55) 02/13/18 12:38 Ferritin 101.3 ng/ml (8-388) 02/13/18 06:10 Total Bilirubin 1.2 mg/dL (0.2-1) H 02/16/18 06:45 Direct Bilirubin 0.6 mg/dL (0.0-0.2) H 02/15/18 06:00 AST 105 U/L (15-37) H 02/16/18 06:45 ALT 191 U/L (13-61) H 02/16/18 06:45 Alkaline Phosphatase 133 U/L (45-117) H 02/16/18 06:45 Creatine Kinase 113 IU/L (26-308) 02/11/18 17:31 Troponin I < 0.02 ng/ml (0.00-0.05) 02/11/18 22:00 C-Reactive Protein 0.5 MG/DL (0.00-0.3) H 02/15/18 06:00 Total Protein 6.5 g/dl (6.4-8.2) 02/16/18 06:45 Albumin 3.3 g/dl (3.4-5.0) L 02/16/18 06:45 Total Amylase 127 U/L (25-115) H 02/15/18 06:00 Lipase 128 U/L (73-393) 02/16/18 06:45 LFTs coming down lipase normal K little low Problem List - Problems (1) Calculus gallbladder and bile duct w/acute cholecystitis and obstructn Assessment/Plan: POD1 s/p laparoscopic cholecystectomy, s/p ERCP day before with sphincterotomy and sludge extraction doing well pain controlled with nonnarcotics - to continue Tyl/Ibu prn for pain at home ( no Rx) ambulating, voiding, tolerating diet dressings c/d/i except umbilical site changed for clean one ok for d/c home with lifting restrictions, f/u in 2 weeks instructions in dc plan complete IV antibiotics today pt also to follow up with primary care, may need referral Code(s): K80.63 - CALCULUS OF GB AND BILE DUCT W ACUTE CHOLECYST W OBSTRUCTION (2) Sludge in gallbladder Code(s): K82.8 - OTHER SPECIFIED DISEASES OF GALLBLADDER (3) Hyperbilirubinemia Assessment/Plan: resolving Code(s): E80.6 - OTHER DISORDERS OF BILIRUBIN METABOLISM (4) Holosystolic murmur Assessment/Plan: echo noted - normal EF, mild MR, mild TR PMD may consider cardio referral as outpt if indicated Code(s): R01.1 - CARDIAC MURMUR, UNSPECIFIED
[2018-02-16 14:02] VITALS: BP 135/74; PULSE 92; TEMP 98
[2018-02-16] MEDS ORDERED: POTASSIUM CHLORIDE TABS 10 MEQ TABLET.ER (FP) PO ONE (15:01)
--- NOTE | 2018-02-16 15:31 | DS ---
Physical Exam: SUBJECTIVE:Patient seen and examined at bedside. He is POD #1 s/p laparoscpic cholecystectomy. Tolerating liquids without abdominal pain, nausea, vomiting. Has urinated without dysuria, hematuria. Has passed flatus. Denies fevers, chill , shortness of breath, chest pain, palpitations. OBJECTIVE: Vital Signs Period Temp Pulse Resp BP Sys/De La Cruz Pulse Ox Last 24 Hr 98.0 F-99.1 F 85-99 18-20 111-142/63-81 96-100 PHYSICAL EXAM GENERAL: Patient is awake, alert, and fully oriented, in no acute distress. Appears stated age. HEAD: Normal with no signs of trauma. EYES: Pupils equal, round and reactive to light, extraocular movements intact b/ l. Sclera anicteric, conjunctiva non-injected b/l. EARS, NOSE, THROAT: Oropharynx clear without exudates erythema, or lesion. Moist mucous membranes. NECK: Normal range of motion, supple without lymphadenopathy, JVD, or masses. LUNGS: Breath sounds equal, clear to auscultation bilaterally. No wheezes, no rhonchi. No accessory muscle use. HEART: Regular rate and rhythm, normal S1 and S2 with holosystolic murmur auscultated over left upper sternal border. ABDOMEN: Soft, nontender to light and deep palpation, not distended. Normoactive bowel sounds X4 quadrants, no guarding, no rebound tendernes. No hepatomegaly appreciated. MUSCULOSKELETAL: Normal range of motion at all joints. Strength 5/5 b/l upper and lower extremities. UPPER EXTREMITIES: 2+ radial pulses b/l, warm, well-perfused. LOWER EXTREMITIES: 2+ dorsalis pedis pulses b/l, warm, well-perfused. No calf tenderness b/l. No lower extremity edema. NEUROLOGICAL: Cranial nerves II-XII intact. Normal speech. Normal gait. PSYCHIATRIC: Cooperative. Appropriate mood and affect. SKIN: Warm, dry. Abdominal surgical incisions noted, bandaged clean without bleeding, or drainage. LABS Laboratory Results - last 24 hr 02/16/18 02/16/18 02/16/18 06:18 06:45 06:45 WBC 8.1 RBC 4.29 Hgb 12.4 Hct 37.9 MCV 88.2 MCH 29.0 MCHC 32.9 RDW 13.3 Plt Count 161 MPV 9.6 Absolute Neuts (auto) 5.9 Neutrophils % 73.1 Lymphocytes % 17.2 D Monocytes % 9.2 Eosinophils % 0.2 D Basophils % 0.3 Nucleated RBC % 0 Sodium 138 Potassium 3.3 L Chloride 103 Carbon Dioxide 29 Anion Gap 6 L BUN 10 Creatinine 0.6 Creat Clearance w eGFR > 60 POC Glucometer 96 Random Glucose 98 Calcium 8.9 Total Bilirubin 1.2 H AST 105 H ALT 191 H Alkaline Phosphatase 133 H Total Protein 6.5 Albumin 3.3 L Lipase 128 HOSPITAL COURSE: Date of Admission:02/11/18 Date of Discharge: 02/16/18 Patient is a 42 year old male with no significant past medical or surgical history presenting with sudden onset abdominal pain. Upon admission, ultrasound of gallbladder shows inspissated bile/ sludge within the gallbladder lumen, with mild distension of the gallbladder. No calculus noted. MRI abdomen showed mild diffuse gallbladder wall edema with overdistension, suggestive of cholecystitis. Inspissated bile/ sludge noted. No biliary tract dilation noted. ERCP showed normal ampulla, with stone fragments swept from CBD. Patient was started on levofloxacin and flagyl. GI consult discussed obtaining MRI and ERCP. Surgical consult discussed laparoscopic cholecystectomy, which patient agreed to. Tolerated procedure well, tolerated clear liquids, and regular diet. He urinated well and passed flatus. Discharged with instruction to follow up with primary care physician (darren gil referral provided), GI, and general surgeon. A heart murmur was noted upon hospitalization, and discharged with instruction to follow up with child attendant as outpatient, to be discussed with primary care provider. Discharged with 5 days augmentin. Minutes to complete discharge: 35 Discharge Summary Reason For Visit: ABNORMAL LIVER FUNCTION TEST/BILIARY SLUDGE DETERM Current Active Problems Abnormal LFTs (liver function tests) (Acute) Biliary sludge determined by ultrasound (Acute) Calculus of gallbladder with acute cholecystitis without obstruction (Acute) Epigastric abdominal pain (Acute) Sludge in gallbladder (Acute) Holosystolic murmur (Chronic) Condition: Improved - Instructions Diet, Activity, Other Instructions: You were admitted for abdominal pain, and were treated with intravenous antibiotics. You had a surgery to remove the gallbladder (laparoscopic colecystectomy). Discharge instructions from surgeon Dr. Negron are provided below. You will continue taking antibiotic Augmentin 875-125mg twice a day (every 12 hours) for the next 5 days. Keep your dressings clean, and dry. Follow the instructions from Dr. Negron, below. Do not lift anything heavier than 10 pounds for the first month after surgery. You may take Tylenol (maximum dosage 2,6000mg daily). You will follow up with your primary care provider within one week after discharge. At that appointment, you will need bloodwork to check your liver function. We have provided you with a referral to [facility]. You will follow up with creative art director Dr. Holland within one week after discharge. You will follow up with surgeon Dr. Negron within two weeks after discharge. Discuss with your doctor for outpatient referral to a child attendant. Please return to the nearest emergency department if you experience any fevers, chills, shortness of breath, chest pain, palpitations, worsening abdominal pain , nausea, vomiting, diarrhea, constipation, bleeding or any discharge from surgical sites, fall, loss of consciousness. Postoperative instructions: You had a laparoscopic cholecystectomy on 02/15/[address] Robert Negron of [facility]. Activity: Resume your usual activities gradually, but no heavy exertion or lifting more than 10-15 pounds for 1 month. Remove dressings 48 hours after surgery; sticky tapes underneath will fall off by themselves. You may shower daily starting then, just pat the incision areas dry. No bath or swimming until skin incisions have healed. Eat lightly at first, but advance to your usual diet as tolerated. Pain: For pain, you may use and alternate Tylenol (acetaminophen) 1-2 pills and/ or ibuprofen (Advil) 200 mg (1-3 pills) every 6 hours each as needed; this means that you can take one OR the other at 3-hour intervals. Do not take more than 4000mg of acetaminophen in a day. Take medications as prescribed or indicated on the labeling. Follow-up: Call Dr. Negron's office at [phone] to make your postop appointment (Wednesday in approximately 2 weeks after surgery). Clinic is held in the [facility] on the first floor of [facility]. Call the office if you have: * increasing pain not responsive to pain medication * fever of 101F or higher * vomiting * unusual or increasing bleeding or drainage from wounds * increasing redness or swelling at wound sites Also, see your primary medical doctor within 1-2 weeks, or make an appointment to see one you have been referred to see- Dr Medina at the [facility] on Wednesday Morning. You were also found to have a heart murmur. Echocardiogram was done and showed mild mitral and tricuspid valve regurgitation. Your primary physician may consider referring you to a child attendant, or heart doctor. Referrals: Anupam Jean Baptiste MD [Staff Physician] - 02/22/18 Robert Negron MD [Staff Physician] - 2 Weeks Aden Holland MD [Staff Physician] - 1 Week Disposition: HOME - Home Medications Comprehensive Discharge Medication List: Ambulatory Orders Acetaminophen [Tylenol .Regular Strength -] 650 mg PO Q6H tablet 02/16/18 Amox-Tr/K Cl [Augmentin - 875Mg Tablet] 1 tab PO BID 5 Days #10 tablet 02/16/18 Ibuprofen [Motrin -] 600 mg PO Q6H tablet 02/16/18 This patient is new to me today: No Emergency Visit: Yes ED Registration Date: 02/11/18 Care time: The patient presented to the Emergency Department on the above date and was hospitalized for further evaluation of their emergent condition. Critical Care patient: No - Discharge Referral Referred to [facility] Med P.C.: No
--- NOTE | 2018-02-16 15:33 | PN ---
Teaching Attending Note Name of Resident: Singh Medina ATTENDING PHYSICIAN STATEMENT I saw and evaluated the patient. I reviewed the resident's note and discussed the case with the resident. I agree with the resident's findings and plan as documented with exceptions below. SUBJECTIVE: Patient seen and examined, minimal soreness around surgical site. Tolerating diet, voiding freely, passing gas, ambulating. no complaints. OBJECTIVE: Vital Signs Period Temp Pulse Resp BP Sys/De La Cruz Pulse Ox Last 24 Hr 98.0 F-99.1 F 85-99 18-20 111-142/63-81 96-100 Intake & Output 02/13/18 02/14/18 02/15/18 02/16/18 23:59 23:59 23:59 23:59 Intake Total 2825 3800 3325 2575 Output Total 300 515 205 Balance 2525 3800 2810 2370 General: sitting in bed in no acute distress Chest: CTAB, no rales or wheezing Abdomen:soft, mild soreness around surgical site, no voluntary or involuntary guarding or rigidity, positive bowel sounds Extremities: no edema Active Medications Acetaminophen (Tylenol -) 650 mg PO Q6H LLUVIA Last Admin: 02/16/18 11:01 Dose: 650 mg Fentanyl (Sublimaze Injection -) 50 mcg IVPUSH Q5M PRN PRN Reason: PAIN-PACU ORDER X 4 DOSES ONLY Last Admin: 02/15/18 14:50 Dose: 50 mcg Lactated Ringer's (Lactated Ringers Solution) 1,000 ml in 1,000 mls @ 100 mls/ hr IV ASDIR LLUVIA Last Admin: 02/15/18 19:16 Dose: Not Given Levofloxacin (Levaquin 500 Mg Premixed Ivpb -) 500 mg in 100 mls @ 100 mls/hr IVPB DAILY [facility]; Protocol Last Admin: 02/16/18 10:31 Dose: 100 mls/hr Metronidazole (Flagyl 500mg Premixed Ivpb -) 500 mg in 100 mls @ 100 mls/hr IVPB Q8H-IV LLUVIA Last Admin: 02/16/18 09:01 Dose: 100 mls/hr Ibuprofen (Motrin -) 600 mg PO Q6H LLUVIA Last Admin: 02/16/18 15:18 Dose: 600 mg Ondansetron HCl (Zofran Injection) 4 mg IVPUSH Q6H PRN PRN Reason: NAUSEA AND/OR VOMITING Oxycodone HCl (Roxicodone -) 5 mg PO Q6H PRN PRN Reason: Pain Level 7 - 10 BREAKTHROUGH Laboratory Results - last 24 hr 02/16/18 02/16/18 02/16/18 06:18 06:45 06:45 WBC 8.1 RBC 4.29 Hgb 12.4 Hct 37.9 MCV 88.2 MCH 29.0 MCHC 32.9 RDW 13.3 Plt Count 161 MPV 9.6 Absolute Neuts (auto) 5.9 Neutrophils % 73.1 Lymphocytes % 17.2 D Monocytes % 9.2 Eosinophils % 0.2 D Basophils % 0.3 Nucleated RBC % 0 Sodium 138 Potassium 3.3 L Chloride 103 Carbon Dioxide 29 Anion Gap 6 L BUN 10 Creatinine 0.6 Creat Clearance w eGFR > 60 POC Glucometer 96 Random Glucose 98 Calcium 8.9 Total Bilirubin 1.2 H AST 105 H ALT 191 H Alkaline Phosphatase 133 H Total Protein 6.5 Albumin 3.3 L Lipase 128 ASSESSMENT AND PLAN: 42 yom with no signficant PMHX admitted with acute cholecystitis -Acute cholecystitis s/p lap CCY 02/15, also MRCP/ERCP with no residual stones -Abnormal LFTs from above Plan: Doing well post op. transaminases mild bump likely from surgical manipulation. Phillip/alk phos improved. Ok for d.c Augmentin for 5 days, Outpatient f/u with surgery and PCP for LFTs monitoring Avoid heavy lifting. d/c home today. Plan discussed with patient in detail, all questions answered.
--- NOTE | 2018-02-17 14:21 | PATH ---
Surgical Pathology Report Patient Name: PORSCHE DEAL Med. Rec. #: [id number] /Age/Gender: 1975 (Age: 42) / M Account: [id number] Location: [facility] MED/SURG Taken: 02/15/2018 Received: 02/16/2018 Reported: 02/17/2018 Physicians: Daniel Colorado M.D. Specimen(s) Received GALLBLADDER Clinical History Acute cholecystitis, choledocholithiasis Final Diagnosis GALLBLADDER, LAPAROSCOPIC CHOLECYSTECTOMY: CHRONIC CHOLECYSTITIS AND CHOLESTEROLOSIS. Electronically Signed Tamra Vasquez M.D. Gross Description Received in formalin, labeled "gallbladder," is a 6.3 x 2.6 x 2.1 cm. gallbladder with a 0.2 cm. in length portion of cystic duct attached. The outer surface is george-pink and varies from smooth to shaggy. The lumen contains green, tenacious bile. No choleliths are identified within the lumen or within the container. The mucosa is dark green and velvety with gold cholesterol stippling. The wall of the gallbladder averages 0.3 cm. in thickness. Brand Protection Manager sections are submitted in one cassette. 02/16/201802/16/2018
== END 2018-02-16 16:38 | disposition home or self-care (01) | DRG 263 ==
LOC: JER 17:10 → JERBED 22:25 → J7W 02-12 02:20
PROVIDERS: ADMIT Internal Medicine; ATTEND Hospitalist
PROC: 0FT44ZZ Resection of Gallbladder, Percutaneous Endoscopic Approach (ICD-10-PCS; principal; 2018-02-15 12:00)
DX: K80.00 Calculus of gallbladder with acute cholecystitis without obstruction (principal); R00.1 Bradycardia, unspecified; R73.9 Hyperglycemia, unspecified; R01.1 Cardiac murmur, unspecified
CPT/HCPCS: 36415; 71046-TC-FY; 74181-TC; 76705-TC; 80053; 82150; 82248; 82550; 82728; 82962; 83036; 83540; 83550; 83690; 83735; 84100; 84484; 85025; 85027; 85610; 85730; 86140; 86704; 86706; 86708; 86850; 86900; 86901; 87340; 87522; 88304-TC; 93005; 93010; 93306-TC; 94760; 99284-25; J7030

== ENCOUNTER 2022-08-14 09:20 | Emergency (ER) | payer OTHER ==
[2022-08-14 09:26] VITALS: BP 138/79; PULSE 105; RESP 18; TEMP 98.2; BMI 26.5
[2022-08-14] MEDS ORDERED: IBUPROFEN 600 MG TABLET (FP) PO ONE ×2 (10:14→10:17)
[2022-08-14] MEDS ORDERED: diazePAM 5 MG TABLET PO ONE (10:15)
[2022-08-14] MEDS ORDERED: diazePAM 5 MG TABLET ONE (10:17)
== END 2022-08-14 11:29 | disposition home or self-care (01) ==
LOC: JERFT 09:20
DX: S16.1XXA Strain of muscle, fascia and tendon at neck level, initial encounter (principal); S80.02XA Contusion of left knee, initial encounter; V49.40XA Driver injured in collision with unspecified motor vehicles in traffic accident, initial encounter
CPT/HCPCS: 71046-TC-FY; 73562-TC-LT-FY; 99284-25